=== PATIENT | female | born 1965 | race Caucasian/White ===

== ENCOUNTER 2020-08-31 15:01 | Emergency (ER) | payer BC, SELFPAY ==
--- NOTE | ~2020-08-31 | XR_ITS ---
EXAMINATION: XR foot LT min 3V DATE: 08/31/2020 15:15 INDICATION: Dorsal left foot pain post fall TECHNIQUE: Dorsoplantar, two oblique and lateral views of the left foot were obtained. COMPARISON: None. FINDINGS: Alignment is normal. No fracture. Mild osteoarthritis at the first metatarsophalangeal and a few inte rphalangeal joints. Small Achilles calcaneal spur. Bone island at the cuboid. Soft tissues are unrema rkable. IMPRESSION: 1. No acute osseous abnormality. Reviewed, dictated and finalized at location A.
[2020-08-31 15:07] VITALS: BP 116/47; PULSE 73; RESP 16; TEMP 36.6; O2SAT 100
--- NOTE | 2020-08-31 15:22 | ED.GENADULT ---
HPI - General Adult General Chief complaint: Extremity Injury, Lower Stated complaint: lt foot injury Source: patient Mode of arrival: ambulatory Limitations: no limitations History of Present Illness HPI narrative: Patient presents for evaluation of left foot pain. She indicates she was on a trip to [place], and slip was endorsed last night. She did not hit her head or have loss of consciousness. She does take NSAIDs but denies anticoagulation. She has an underlying history of rheumatoid arthritis and fibromyalgia. She now reports pain in the dorsal aspect of the left foot, rated 8 on a scale of 1-10, without descriptive quality. Weightbearing and walking make the pain worse. She has flexeril and NSAIDs at home. She states she was offered tramadol but that was not strong enough for her. Related Data Home Medications Medication Instructions Recorded Confirmed alprazolam 0.5 mg tablet 0.5 mg PO DAILY 05/20/20 calcium carbonate 600 mg calcium 600 mg PO DAILY 05/20/20 (1,500 mg) tablet cholecalciferol (vitamin D3) 50 50 mcg PO DAILY 05/20/20 mcg (2,000 unit) capsule diclofenac sodium 50 mg 50 mg PO DAILY 05/20/20 tablet,delayed release multivitamin 1 tablet PO DAILY 05/20/20 vilazodone [Viibryd] mg 08/31/20 Allergies Allergy/AdvReac Type Severity Reaction Status Date / Time azithromycin Allergy Unknown Unknown Verified 05/20/20 12:35 hydromorphone Allergy Unknown Unknown Verified 05/20/20 12:35 Penicillins Allergy Unknown Unknown Verified 05/20/20 12:35 Sulfa (Sulfonamide Allergy Unknown Unknown Verified 05/20/20 12:35 Antibiotics) sulfanilamide Allergy Unknown Unknown Verified 05/20/20 12:35 Review of Systems Review of Systems: Narrative: CONSTITUTIONAL: Denies fever, chills, or sweats. EYES: Denies visual changes, redness, or discharge. ENT: Denies rhinorrhea, congestion, sore throat, or otalgia. CARDIOVASCULAR: Denies chest pain, palpitations, or edema. RESPIRATORY: Denies cough or dyspnea. GASTROINTESTINAL: Denies abdominal pain, nausea, vomiting, or diarrhea. GENITOURINARY: Denies dysuria or hematuria. SKIN: Denies rash or itching. MUSCULOSKELETAL: Denies back pain. Reports left foot pain and swelling NEUROLOGIC: Denies headache, numbness, dizziness, or weakness. PSYCHIATRIC: Denies anxiety or depression. PMFSH Past Medical History Medical History (Updated 08/31/20 @ 16:14 by Christopher Dyer, EDIE, BC) Arthritis Arthritis, rheumatic, acute or subacute Depression Fibromyalgia Irritable bowel Vaginal delivery x 2 Surgical History Surgical History History of endometrial ablation History of tonsillectomy S/P cervical spinal fusion Family History Family History Mother Family history of malignant melanoma Sibling Family history of blood dyscrasia Grandparent Family history of malignant neoplasm of breast Diabetes mellitus Family history of malignant neoplasm of breast in first degree relative Other Cerebrovascular accident Depression Family history of coronary artery disease Family history of lupus erythematosus Family history of malignant neoplasm Family history of malignant neoplasm of male breast Malignant neoplasm of prostate Social History Social History Smoking status: Never smoker Second hand tobacco smoke exposure: No Alcohol intake: current Living arrangements: with family Gender identity (if verbalized by the patient): Female Sexual Orientation (if Verbalized by the Patient): Straight or Heterosexual Exam Narrative: Exam Narrative: GENERAL: Well-appearing, well-nourished, and in no acute distress. HEAD: Normocephalic, atraumatic. EYES: PERRLA and EOMI. ENT: Nares clear, no rhinorrhea or epistaxis. Mucous membranes moist. Oropharynx without tonsillar hypertro
[2020-08-31] MEDS: KETOROLAC (*BKC) 60 MG/2 ML VIAL IM (15:30)
== END 2020-08-31 16:26 | disposition home or self-care (01) ==
PROVIDERS: Emergency Provider Nurse Practitioner; PCP Family Medicine
DX: S96.912A Strain of unspecified muscle and tendon at ankle and foot level, left foot, initial encounter (principal); W09.8XXA Fall on or from other playground equipment, initial encounter; M06.9 Rheumatoid arthritis, unspecified; M79.7 Fibromyalgia
CPT/HCPCS: 73630; 96372; 99213; G0463; J1885

== ENCOUNTER 2020-10-15 10:34 | Outpatient (CLI) | payer BC, SELFPAY ==
--- NOTE | ~2020-10-15 | MM_ITS ---
EXAMINATION: MM screening winnie BI w vladimir HISTORY: Screening mammogram TECHNIQUE: Craniocaudal and mediolateral oblique 3-D tomosynthesis images were obtained and synthetic 2-D images were generated. CAD analysis was submitted and interpreted. COMPARISON: 08/28/2019, 07/13/2018, 07/11/2017 bilateral digital screening mammogram examinations BREAST PARENCHYMAL COMPOSITION: There are scattered areas of fibroglandular density. FINDINGS: Stable mild fibroglandular asymmetry. There is no evidence of suspicious mass, calcificatio n, or architectural distortion to suggest malignancy in either breast. There has been no suspicious i nterval change. IMPRESSION: 1. No mammographic evidence of malignancy. 2. Recommend routine screening mammography in one year. BI-RADS Category 2: Benign finding(s). Reviewed, dictated and finalized at location B. [facility] [facility]
== END 2020-10-15 10:35 | disposition home or self-care (01) ==
PROVIDERS: PCP Family Medicine; Visit Provider Obstetrics & Gynecology
DX: Z12.31 Encounter for screening mammogram for malignant neoplasm of breast (principal)
CPT/HCPCS: 77063; 77067

== ENCOUNTER 2021-11-16 15:37 | Outpatient (CLI) | payer BC, SELFPAY ==
--- NOTE | ~2021-11-16 | MM_ITS ---
EXAMINATION: MM screening winnie BI w vladimir HISTORY: Screening mammogram, family history of breast cancer in her mother. TECHNIQUE: Craniocaudal and mediolateral oblique 3-D tomosynthesis images were obtained and synthetic 2-D images were generated. CAD analysis was submitted and interpreted. COMPARISON: 10/15/2020, 08/28/2019, 07/13/2018 BREAST PARENCHYMAL COMPOSITION: There are scattered areas of fibroglandular density. FINDINGS: There is no evidence of suspicious mass, calcification, or architectural distortion to sugg est malignancy in either breast. There has been no suspicious interval change. IMPRESSION: 1. No mammographic evidence of malignancy. 2. Recommend routine screening mammography in one year. BI-RADS Category 1: Negative Reviewed, dictated and finalized at location A. 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
== END 2021-11-16 15:38 | disposition home or self-care (01) ==
LOC: ANHIMG 15:37
PROVIDERS: PCP Family Medicine; Visit Provider Obstetrics & Gynecology
DX: Z12.31 Encounter for screening mammogram for malignant neoplasm of breast (principal)
CPT/HCPCS: 77063; 77067

== ENCOUNTER 2022-02-08 09:41 | Emergency (ER) | payer BC, SELFPAY ==
--- NOTE | ~2022-02-08 | XR_ITS ---
EXAMINATION: XR chest 1V portable DATE: 02/08/2022 10:45 INDICATION: Shortness of breath and painful breathing TECHNIQUE: frontal view of the chest was obtained. COMPARISON: None FINDINGS: The lungs are clear with no focal airspace opacities, pulmonary edema, pleural effusion or pneumothor ax. The cardiomediastinal silhouette is normal. Cervical spinal fusion with anterior plate and screw fixation at C6-C7 and with bilateral vertical yelena and paired bilateral mass screws at C5, C6 and C7, right-sided screw at C4 and centimeters on the cephalad margin of the [id number] with suggestion o f nonvisualized bilateral screws at C3. IMPRESSION: 1. No acute cardiopulmonary disease. Reviewed, dictated and finalized at location A.
--- NOTE | ~2022-02-08 | CT_ITS ---
EXAMINATION: CTA chest PE abdomen pel DATE: 02/08/2022 11:27 INDICATION: Left flank pain. Left upper back pain. TECHNIQUE: Computed tomography angiography (CTA) of the chest was performed with 100 mL Omnipaque-350 intravenous contrast timed to evaluate the pulmonary arteries. Coronal maximum intensity projection 3D-reconstructions were created by the technologist. Computed tomography (CT) of the abdomen and pelv is was performed with intravenous contrast. Automated exposure control and iterative reconstruction t echnique were employed. The dose-length product was 536.76 mGy-cm. COMPARISON: CT abdomen and pelvis 06/28/2011, MRCP 06/29/2011 FINDINGS: CTA chest: The lungs demonstrate mild atelectasis. There is a trace left pleural effusion. The heart size is normal. No pericardial effusion. There is a left paraspinal mass at T5 measuring 3.9 x 2.4 cm , increased from 2.9 x 1.7 cm on 06/29/11. There is no pulmonary embolus. There is severe thoracic spon dylosis. There are changes of anterior fusion procedure in thoracic spine. CT abdomen and pelvis: The liver, gallbladder, spleen, pancreas, adrenal glands, and left kidney are normal. There is a 4 mm cyst in right kidney. There is diverticulosis of the colon without evidence o f diverticulitis. There are no dilated loops of bowel. The appendix is normal. There is mild aortic a therosclerosis. No aneurysm or dissection. There are no pathologically enlarged lymph nodes. There is no free intraperitoneal fluid. There is severe lumbar spondylosis. IMPRESSION: 1. No pulmonary embolus. 2. 3.9 x 2.4 cm left paraspinal mass at T5 with increase in size from 2.9 x 1.7 cm on 06/29/2011, likel y a neurogenic tumor. Reviewed, dictated and finalized at location A. IMPRESSION: 1. No pulmonary embolus. 2. 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
[2022-02-08 09:59] VITALS: BP 143/79; PULSE 101; RESP 16; TEMP 36.8; O2SAT 98
[2022-02-08 10:18] LABS: Basophils Percent Auto 0.6 % (0.2-1.2); Eosinophils Absolute Auto 0.1 K/mm3 (0-0.3); Eosinophils Percent Auto 2.1 % (0-4.4); Hematocrit 39.4 % (37.0-47.0); Immature Granulocyte Absolute 0.01 K/mm3 (0.00-0.031); Immature Granulocyte Percent A 0.2 % (0-0.5); Lymphocytes Absolute Auto 1.78 K/mm3 (0.9-3.2); Lymphocytes Percent Auto 28.6 % (18.3-44.2); Mean Corpuscular Hemoglobin 27.3 pg (26-34); Mean Corpuscular Volume 82.8 fl (80-100); Mean Platelet Volume 8.3 fl (7.4-10.4); Monocytes Absolute Auto 0.6 K/mm3 (0.1-0.6); Neutrophils Absolute Auto 3.7 K/mm3 (1.3-6.7); Neutrophils Percent Auto 58.5 % (45.5-73.1); Platelet Count Result 337 k/mm3 (150-375); Red Blood Count 4.76 M/mm3 (4.2-5.4); Red Cell Distribution Width 13.6 % (11.5-14.5); White Blood Count 6.2 K/mm3 (4.5-10.0)
--- NOTE | 2022-02-08 10:21 | ECG_ITS ---
Measurements Intervals [place] Rate: 92 P: 48 DC: 163 QRS: -3 QRSD: 91 T: 69 QT: 357 QTc: 443 Interpretive Statements SINUS RHYTHM NORMAL ECG NO PREVIOUS ECG AVAILABLE FOR COMPARISON Electronically Signed On 02-08-2022 14:27:36 CDT by Henok Butler M.D.
[2022-02-08 10:22] LABS: Appearance Urine Clear (Clear); Bilirubin Urine Negative (Negative); Blood Urine Negative (Negative); Color Urine Yellow (Yellow); Glucose Urine UA Negative (Negative); Ketones Urine Negative (Negative); Leukocyte Esterase Ur Negative LEU/UL (Negative); Nitrate Urine Negative (Negative); Protein Urine Negative (Negative); Specific Grav Ur 1.025 (1.001-1.035); Urobilinogen Urine 0.2 mg/dL (<2.0); pH Urine 5.5 (5.0-9.0)
--- NOTE | 2022-02-08 10:24 | ED.GENADULT ---
HPI - General Adult General Chief complaint: Abdominal Pain Stated complaint: flank pain Time Seen by Provider: 02/08/22 09:56 Source: patient and RN notes reviewed Mode of arrival: ambulatory Limitations: no limitations History of Present Illness HPI narrative: This is a 56 year old female who presents for evaluation of left upper back pain. She developed pain on night. She reports constant left flank pain that radiates up her upper left back. Her pain is worse with laying on it and movement. She was having dysuria so she was evaluated by her PCP on Tuesday. She was diagnosed with a kidney infection. She also complains of having fever 100.8 F on Tuesday. She has been taking diclofenac for her pain but it is worsening. She denies chest pain, cough, nausea, vomiting or abdominal pain. Her dysuria has resolved. Rates pain 06/06 currently. Related Data Home Medications Medication Instructions Recorded Confirmed alprazolam 0.5 mg tablet 0.5 mg PO DAILY 05/20/20 06/29/21 calcium carbonate 600 mg calcium 600 mg PO DAILY 05/20/20 06/29/21 (1,500 mg) tablet cholecalciferol (vitamin D3) 50 50 mcg PO DAILY 05/20/20 06/29/21 mcg (2,000 unit) capsule diclofenac sodium 50 mg 50 mg PO DAILY 05/20/20 06/29/21 tablet,delayed release multivitamin 1 tablet PO DAILY 05/20/20 06/29/21 vilazodone [Viibryd] mg 08/31/20 06/29/21 dextroamphetamine-amphetamine 10 10 mg PO DAILY 05/21/21 06/29/21 mg tablet hydroxychloroquine 200 mg tablet 200 mg PO DAILY 05/21/21 06/29/21 Allergies Allergy/AdvReac Type Severity Reaction Status Date / Time azithromycin Allergy Unknown Unknown Verified 02/08/22 10:11 hydromorphone Allergy Unknown Unknown Verified 02/08/22 10:11 Penicillins Allergy Unknown Unknown Verified 02/08/22 10:11 Sulfa (Sulfonamide Allergy Unknown Unknown Verified 02/08/22 10:11 Antibiotics) sulfanilamide Allergy Unknown Unknown Verified 02/08/22 10:11 Review of Systems Review of Systems: All systems reviewed & are unremarkable except as noted in HPI and below Constitutional: Constitutional: Reports chills and Reports fever(s) Cardiovascular: Cardiovascular: Denies chest pain and Denies radiating jaw, neck or arm pain Respiratory: Respiratory: Denies cough and Reports dyspnea Gastrointestinal: Gastrointestinal: Denies abdominal pain, Denies nausea and Denies vomiting Genitourinary: Genitourinary: Denies hematuria, Reports dysuria and Reports flank pain PMFSH Past Medical History Medical History Arthritis Arthritis, rheumatic, acute or subacute Depression Fibromyalgia Irritable bowel Vaginal delivery x 2 Surgical History Surgical History H/O wrist surgery History of endometrial ablation History of tonsillectomy S/P cervical spinal fusion Family History Family History Mother Family history of malignant melanoma Sibling Family history of blood dyscrasia Grandparent Family history of malignant neoplasm of breast Diabetes mellitus Family history of malignant neoplasm of breast in first degree relative Other Cerebrovascular accident Depression Family history of coronary artery disease Family history of lupus erythematosus Family history of malignant neoplasm Family history of malignant neoplasm of male breast Malignant neoplasm of prostate Social History Social History Smoking status: Never smoker Second hand tobacco smoke exposure: No Alcohol intake: current Gender identity (if verbalized by the patient): Female Sexual Orientation (if Verbalized by the Patient): Straight or Heterosexual Exam Const: General: no acute distress and alert Orientation/consciousness: patient oriented x3 Eyes: EOM: EOMs intact bilaterally Resp: Eff
[2022-02-08 10:27] LABS: Alanine Aminotransferase 33 U/L (4-35); Albumin Level 4.5 g/dL (3.5-5.1); Alkaline Phosphatase 63 U/L (38-126); Anion Gap 11 mmol/L (8-16); Aspartate Amino Transferase 36 U/L (14-36); Bilirubin,Total 0.3 mg/dL (0.2-1.3); Blood Urea Nitrogen 7 mg/dL (7-17); Calcium 9.1 mg/dL (8.4-10.2); Carbon Dioxide 25 mmol/L (22-30); Chloride 105 mmol/L (98-107); Estimated CRCL calculation 66 ml/min; Estimated Glomerular Filt Rate > 60; Glucose 114 mg/dL (65-110); Lipase 63 U/L (23-300); Sodium 141 mmol/L (137-145)
[2022-02-08] MEDS: MORPHINE SULFATE (*CRX) 4 MG/ML INJ IV PUSH (10:49)
[2022-02-08] MEDS: ONDANSETRON INJ 4 MG/2 ML VIAL IV PUSH (10:49)
[2022-02-08] MEDS: SODIUM CHLORIDE 0.9% IV 1,000 ML 999 ML IV CONT (10:49)
[2022-02-08 10:58] LABS: Lactic Acid Reflex 0.8 mmol/L (0.7-2.1)
[2022-02-08 11:00] LABS: D Dimer 1.01 ug/mL (<0.48)
[2022-02-08 11:02] LABS: Add Urine Microscopic? NO
[2022-02-08 11:57] VITALS: BP 114/65; PULSE 95; RESP 19; O2SAT 100
== END 2022-02-08 13:09 | disposition home or self-care (01) ==
PROVIDERS: Emergency Provider General Practice; PCP Family Medicine
DX: R22.2 Localized swelling, mass and lump, trunk (principal); N15.9 Renal tubulo-interstitial disease, unspecified; M19.90 Unspecified osteoarthritis, unspecified site; M06.9 Rheumatoid arthritis, unspecified; M79.7 Fibromyalgia; K58.9 Irritable bowel syndrome, unspecified; F32.A Depression, unspecified; Z98.1 Arthrodesis status
CPT/HCPCS: 36415; 71045; 71275; 74177; 80053; 81003; 81025; 83605; 83690; 85025; 85380; 93005; 96361; 96374; 96375; 99284; J2270; J2405; J7030; Q9967

== ENCOUNTER 2022-04-06 15:51 | Outpatient (CLI) | payer BC, SELFPAY ==
--- NOTE | ~2022-04-06 | MR_ITS ---
EXAMINATION: MR thoracic spine wo/w con DATE: 04/06/2022 17:52 INDICATION: Nerve sheath tumor. TECHNIQUE: Magnetic resonance imaging (MRI) of the thoracic spine was performed without and with 13 m L MultiHance intravenous contrast. Sequences included sagittal and axial T2-weighted FSE, sagittal ST IR FSE, and sagittal and axial T1-weighted FSE. Postcontrast sequences included sagittal and axial T1 -weighted FS FSE. COMPARISON: CT chest, abdomen, and pelvis 02/08/2022, abdomen MRI 06/29/11 FINDINGS: There is 4 degrees levocurvature of cervicothoracic spine. There are changes of anterior fu beatriz procedure at C6-C7. There are changes of posterior fusion procedure from C3 to C7. In the thorac ic spine, there is mild chronic anterior wedging of T6, T7, T12, and L1 vertebral bodies. There are S chmorl's nodes at multiple levels. There is mildly decreased disc height at T3-T4 and T5-T6, severely decreased disc height at T6-T7, moderately decreased disc height at T7-T8 and T8-T9, and mildly decr eased disc height at T9-T10. The discs are bulging from T1-T2 through T3-T4 with mild central canal s tenosis. From T6-T7 through T8-T9, there are central extrusions with mild central canal stenosis. At T9-T10, there is a right central extrusion with mild central canal stenosis. At T10-T11, there is a r ight central extrusion with mild central canal stenosis. There is multilevel mild to moderate facet j oint osteoarthritis. There is mild neural foraminal stenosis on the right at T1-T2, T2-T3, T7-T8, and T9-T10. On the right, there is moderate neural foraminal stenosis at T8-T9. On the left, there is mi ld neural foraminal stenosis at T1-T2 and T2-T3. The spinal cord signal intensity is normal. At T4 an d T5 on, there is a left paraspinal cyst measuring 3.4 x 1.0 x 3.7 cm without solid enhancing compone nt. IMPRESSION: 1. 3.4 x 1.0 x 3.7 cm left paraspinal cyst at T4 and T5, which measured 3.1 x 1.4 x 3.0 cm on 06/29/11, likely a benign cyst such as a lymphangioma. 2. Severe thoracic spondylosis. Reviewed, dictated and finalized at location E. IMPRESSION: 1. 3.4 x 1.0 x 3.7 cm left paraspinal cyst at T4 and T5, which measured 3.1 x 1 .4 x 3.0 cm on 06/29/11, likely a benign cyst such as a lymphangioma. 2. Severe thoracic spondylosis.
[2022-04-06 16:45] LABS: Estimated Glomerular Filt Rate > 60
== END 2022-04-06 15:52 | disposition home or self-care (01) ==
PROVIDERS: PCP Family Medicine; Visit Provider Neurological Surgery
DX: D49.2 Neoplasm of unspecified behavior of bone, soft tissue, and skin (principal); M47.894 Other spondylosis, thoracic region
CPT/HCPCS: 72157; A9577

== ENCOUNTER 2022-08-12 13:09 | Outpatient (CLI) | payer BC, SELFPAY ==
--- NOTE | ~2022-08-12 | DEXA_ITS ---
Bone Density Report Name: DEBRA HERRERA Age: 57 Sex: Female Ethnicity: White Date of : 1965 Indication: postmenopausal; screening for osteoporosis; height loss; rheumatoid arthritis; Referring Provider: DAVID CASTILLO Study: Bone densitometry was performed. Exam Date: August 12, 2022 Accession number: [id number] Bone Density: Region BMD T-score Z-score Classification AP Spine(L1-L4) 1.085 0.3 1.6 Normal Femoral Neck (Left) 0.598 -2.3 -1.1 Osteopenia Total Hip (Left) 0.637 -2.5 -1.7 Osteoporosis Femoral Neck (Right) 0.562 -2.6 -1.4 Osteoporosis Total Hip (Right) 0.665 -2.3 -1.4 Osteopenia Total Hip Mean 0.651 -2.4 -1.6 Osteopenia World Health Organization criteria for BMD impression classify patients as: Normal (T-score at or above -1.0), Osteopenia (T-score between -1.0 and -2.5), or Osteoporosis (T-score at or below -2.5). 10-year Fracture Risk: FRAX not reported because: Some T-score for Spine Total or Hip Total or Femoral Neck at or below -2.5 Clinical Information Provided by Patient: Has rheumatoid arthritis Has used the following medications: Vitamin D, Calcium Patient maximum height was 67.5 Menopause Age: 49 Drinks caffeinated beverages Onset of menses at age 11 Number of children 2 Impression: The patient has osteoporosis, based on the Right Femoral Neck T-score. Discussion: INCREASED RISK OF FRACTURE. BONE DENSITY IS UNDESIRABLY LOW AT ONE OR MORE SKELETAL SITES, CONSISTENT WITH POSTMENOPAUSAL OSTEOPOROSIS. This patient's lowest T-score meets the World Health Organization's (WHO) criteria for osteoporosis at one or more sites (T-score -2.5 or below). In untreated patients, the risk of osteoporotic fracture increases approximately two-fold for each 1.0 SD decrease in T-score. Low bone density is not the only risk factor for fracture; also consider factors such as patient's age, frailty or poor health, risk of falling, risk of injury, previous osteoporotic fracture, family history of osteoporosis, cigarette smoking, low body weight, etc. Not everyone with low bone mineral density has osteoporosis; osteomalacia and other metabolic bone disorders should also be considered. Patients who have osteoporosis should be evaluated for specific diseases and conditions (secondary causes) that may cause or contribute to bone loss. The [place] [employer] Endocrinologists (AACE) and National Osteoporosis Foundation (NOF) recommend pharmacologic intervention for all postmenopausal women whose T-score is in this range. The patient should follow a healthful lifestyle (good nutrition with adequate calcium and vitamin D, and appropriate weight-bearing exercise). Follow-Up: Consider a repeat BMD and Vertebral Fracture Assessment (VFA) exam in 2 years or sooner if medically ne
== END 2022-08-12 13:10 | disposition home or self-care (01) ==
PROVIDERS: PCP Family Medicine; Visit Provider Obstetrics & Gynecology
DX: Z78.0 Asymptomatic menopausal state (principal); M85.852 Other specified disorders of bone density and structure, left thigh; M85.851 Other specified disorders of bone density and structure, right thigh
CPT/HCPCS: 77080

== ENCOUNTER 2022-10-05 13:54 | Outpatient (CLI) | payer BC, SELFPAY ==
[2022-10-05 19:16] LABS: Vitamin D 25 Hydroxy 94.9 ng/mL
== END 2022-10-05 13:55 | disposition home or self-care (01) ==
PROVIDERS: PCP Family Medicine; Visit Provider Obstetrics & Gynecology
DX: M81.0 Age-related osteoporosis without current pathological fracture (principal)
CPT/HCPCS: 36415; 82306

== ENCOUNTER 2022-10-12 16:41 | Outpatient (CLI) | payer BC, SELFPAY ==
--- NOTE | ~2022-10-12 | MR_ITS ---
EXAMINATION: MR thoracic spine wo/w con DATE: 10/12/2022 17:36 INDICATION: Nerve sheath tumor. TECHNIQUE: Magnetic resonance imaging (MRI) of the thoracic spine was performed without and with 13 m L MultiHance intravenous contrast. COMPARISON: Thoracic spine MRI 04/06/2022, CT 02/08/2022 FINDINGS: There is mild kyphosis of cervical spine. There are changes of anterior fusion procedure at C6-C7 with anterior plate and screws. There are changes of posterior fusion procedure from C3 to C7 with lateral mass screws. At T5 on the left, there is a 2.8 x 0.6 cm paraspinal mass that demonstrate s increased T1-weighted signal intensity and increased T2-weighted signal intensity, decreased from 3 .4 x 1.2 cm on 04/06/2022. There is mild chronic anterior wedging of T6 vertebral body. There is mildl y decreased disc height at multiple levels. There is severely decreased disc height at T6-T7, moderat antonia decreased disc height at T7-T8, and severely decreased disc height at T8-T9. At T1-T2, the disc i s bulging with mild central canal stenosis. At T2-T3, the disc is bulging with mild central canal kianna nosis. At T3-T4, the disc is bulging with mild central canal stenosis. At T5-T6, there is a left cent ral extrusion with mild central canal stenosis. At T6-T7, there is a central extrusion with mild cent ral canal stenosis and ventral indentation of the spinal cord. At T7-T8, the disc is bulging with mil d central canal stenosis. At T8-T9, there is a central extrusion with mild central canal stenosis. At T9-T10, there is a right central protrusion with mild central canal stenosis. There is multilevel mi ld to moderate facet joint osteoarthrosis. There is mild neural foraminal stenosis at multiple levels bilaterally. The spinal cord signal intensity is normal. The conus medullaris is at L1. IMPRESSION: 1. Left paraspinal cystic mass at T5 measuring 2.8 x 0.6 cm, decreased from 3.4 x 1.2 cm on 04/06/2022 . The differential diagnosis includes lymphangioma and peripheral nerve sheath tumor. 2. Severe thoracic spondylosis. Reviewed, dictated and finalized at location A. 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 Left paraspinal cystic mass at T5 measuring 2.8 x 0.6 cm, decreased from 3.4 x 1.2 cm on 04/06/2022. The differential diagnosis includes lymphangioma and pe ripheral nerve sheath tumor. 2. Severe thoracic spondylosis.
== END 2022-10-12 16:42 | disposition home or self-care (01) ==
LOC: ANHIMG 16:44
PROVIDERS: PCP Family Medicine; Visit Provider Neurological Surgery
DX: M47.894 Other spondylosis, thoracic region (principal); M48.8X4 Other specified spondylopathies, thoracic region
CPT/HCPCS: 72157; A9577

== ENCOUNTER → 2022-12-01 11:03 | Outpatient (CLI) | payer BC, SELFPAY ==
--- NOTE | ~2022-12-01 | MM_ITS ---
EXAMINATION: MM screening winnie BI w vladimir HISTORY: Screening mammogram, family history of breast cancer in her mother. TECHNIQUE: Craniocaudal and mediolateral oblique 3-D tomosynthesis images were obtained and synthetic 2-D images were generated. CAD analysis was submitted and interpreted. COMPARISON: 11/16/2021, 10/15/2020, 08/28/2019 BREAST PARENCHYMAL COMPOSITION: There are scattered areas of fibroglandular density. FINDINGS: No suspicious mass, calcification, or architectural distortion are identified in either feliberto ast to suggest malignancy. There has been no suspicious interval change. IMPRESSION: 1. No mammographic evidence of malignancy. 2. Recommend routine screening mammography in one year. BI-RADS Category 1: Negative Reviewed, dictated and finalized at location A. 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
== END ==
PROVIDERS: PCP Family Medicine; Visit Provider Obstetrics & Gynecology
DX: Z12.31 Encounter for screening mammogram for malignant neoplasm of breast (principal)
CPT/HCPCS: 77063; 77067

== ENCOUNTER → 2023-04-21 13:55 | Outpatient (CLI) | payer BC, SELFPAY ==
--- NOTE | ~2023-04-21 | MR_ITS ---
EXAMINATION: MR cervical spine wo con DATE: 04/21/2023 15:05 INDICATION: Spondylolysis, cervical region. TECHNIQUE: Magnetic resonance imaging (MRI) of the cervical spine was performed without intravenous c ontrast. Sequences included sagittal T2-weighted FSE, sagittal T2-weighted FS FSE, sagittal T1-weight ed FSE, axial MERGE, and axial T2-weighted FSE. COMPARISON: None FINDINGS: There is hypolordosis of cervical spine. Vertebral body heights are normal. There is 2 mm a nterolisthesis of C7 on T1. There is mildly decreased disc height at C4-C5 and moderately decreased d isc height at C5-C6. There are changes of anterior fusion procedure at C6-C7 with anterior plate and screws. There are changes of posterior fusion procedure from C3 to C7 with instrumentation. There are laminectomies from C3 to C6. The spinal cord signal intensity is normal. The following disc levels a re specifically discussed: C2-C3: There is a central extrusion. There is mild bilateral uncovertebral joint osteoarthritis. Ther e is moderate bilateral facet joint osteoarthritis. There is mild left neural foraminal stenosis. The re is mild central canal stenosis with posterior decompression. C3-C4: There is a central extrusion. There is mild bilateral uncovertebral joint osteoarthritis. Ther e is moderate bilateral facet joint hypertrophy. There is mild left neural foraminal stenosis. There is mild central canal stenosis with posterior decompression. C4-C5: There is a central protrusion. There is mild right and moderate left uncovertebral joint osteo arthritis. There is no facet joint hypertrophy. There is mild bilateral neural foraminal stenosis. Th ere is no central canal stenosis C5-C6: The disc does not extend beyond the endplate margin. There is moderate bilateral uncovertebral joint osteoarthritis. There is mild bilateral facet joint hypertrophy. There is mild bilateral neura l foraminal stenosis. There is no central canal stenosis. C6-C7: There is moderate bilateral uncovertebral joint hypertrophy. There is mild bilateral facet kathleen nt hypertrophy. There is mild right and moderate left neural foraminal stenosis. There is mild centra l canal stenosis with posterior decompression. C7-T1: There is a central extrusion. There is mild bilateral uncovertebral joint osteoarthritis. Ther e is severe bilateral facet joint osteoarthritis. There is mild bilateral neural foraminal stenosis. There is no central canal stenosis. IMPRESSION: 1. Moderate cervical spondylosis. 2. Anterior fusion procedure at C6-C7. Posterior fusion procedure from C3 to C7. Reviewed, dictated and finalized at location E. IMPRESSION: 1. Moderate cervical spondylosis. 2. Anterior fusion procedure at C6-C7. Posterior fusion procedure from C3 to C7 .
== END ==
PROVIDERS: PCP Neurological Surgery; Visit Provider Neurological Surgery
DX: M43.02 Spondylolysis, cervical region (principal); Z98.1 Arthrodesis status
CPT/HCPCS: 72141

== ENCOUNTER 2023-08-16 12:43 | Outpatient (CLI) | payer BC, SELFPAY ==
--- NOTE | 2023-08-16 15:00 | NEURO_ITS ---
Impression: # Complains of right upper extremity pain. History of cervical surgery. # Normal and symmetrical Nerve Conduction Study. # Needle/EMG exam with chronic neurogenic changes particularly in left extremity but no fibs. # Clinical correlation recommended. Nerve Conduction Studies Anti Sensory Summary Table Stim Site NR Peak (ms) P-T Amp (?V) Site1 Site2 Delta-P (ms) Dist (cm) Bertram (m/s) Left Median Anti Sensory (2-3nd Digit) Wrist 3.0 82.4 Wrist 2-3nd Digit 3.0 14.0 47 Wrist 2.9 60.6 Wrist 2-3nd Digit 3.0 14.0 47 Right Median Anti Sensory (2-3nd Digit) Wrist 2.7 65.0 Wrist 2-3nd Digit 2.7 14.0 52 Wrist 2.8 79.7 Wrist 2-3nd Digit 2.7 14.0 52 Left Radial Anti Sensory (Base 1st Digit) Wrist 2.7 33.8 Wrist Base 1st Digit 2.7 0.0 Right Radial Anti Sensory (Base 1st Digit) Wrist 2.3 13.8 Wrist Base 1st Digit 2.3 0.0 Left Ulnar Anti Sensory (5th Digit) Wrist 2.3 63.5 Wrist 5th Digit 2.3 14.0 61 Right Ulnar Anti Sensory (5th Digit) Wrist 2.3 71.6 Wrist 5th Digit 2.3 14.0 61 Motor Summary Table Stim Site NR Onset (ms) O-P Amp (mV) Site1 Site2 Delta-0 (ms) Dist (cm) Bertram (m/s) Left Median Motor (Abd Poll Brev) Wrist 3.7 3.9 Elbow Wrist 4.6 27.0 59 Elbow 8.3 3.0 Right Median Motor (Abd Poll Brev) Wrist 3.2 2.6 Elbow Wrist 4.9 27.0 55 Elbow 8.1 1.4 Left Ulnar Motor (Abd Dig Minimi) Wrist 2.7 5.4 A Elbow Wrist 4.6 28.0 61 A Elbow 7.3 4.5 Right Ulnar Motor (Abd Dig Minimi) Wrist 2.9 5.8 A Elbow Wrist 4.6 28.0 61 A Elbow 7.5 5.6 F Wave Studies NR F-Lat (ms) L-R F-Lat (ms) Left Median (Mrkrs) (Abd Poll Brev) 26.64 0.81 Right Median (Mrkrs) (Abd Poll Brev) 27.45 0.81 Left Ulnar (Mrkrs) (Abd Dig Min) 27.27 0.47 Right Ulnar (Mrkrs) (Abd Dig Min) 27.74 0.47 EMG Side Muscle Nerve Root Ins Act Fibs Amp Dur Recrt Comment Right 1stDorInt Ulnar C8-T1 Nml Nml Nml Nml Nml Right Ext Indicis Radial (Post Int) C7-8 Nml Nml Nml Nml Nml Right Ext Digitorum Radial (Post Int) C7-8 Nml Nml Nml Nml Nml Right BrachioRad Radial C5-6 Nml Nml Nml Nml Nml Right PronatorTeres Median C6-7 Nml Nml Nml Nml Nml Right Abd Poll Brev Median C8-T1 Nml Nml Nml Nml Nml Left 1stDorInt Ulnar C8-T1 Nml Nml Nml Nml Nml Left Ext Indicis Radial (Post Int) C7-8 Nml Nml Nml Nml Nml Left Ext Digitorum Radial (Post Int) C7-8 Nml Nml Nml Nml Nml Left BrachioRad Radial C5-6 Nml Nml Nml Nml Nml Left PronatorTeres Median C6-7 Nml Nml Nml Nml Nml Left Abd Poll Brev Median C8-T1 Nml Nml Nml Nml Nml Right Biceps Musculocut C5-6 Nml Nml Nml Nml Nml Right Triceps Radial C6-7-8 Nml Nml Nml Nml Nml Right Deltoid Axillary C5-6 Nml Nml Nml Nml Nml Left Biceps Musculocut C5-6 Nml Nml Nml Nml Nml Left Triceps Radial C6-7-8 Nml Nml Nml Nml Nml Left Deltoid Axillary C5-6 Nml Nml Nml Nml Nml MTDD
== END 2023-08-16 12:44 | disposition home or self-care (01) ==
LOC: ANHNEURO 12:45
PROVIDERS: PCP Family Medicine; Visit Provider Neurological Surgery
DX: M79.629 Pain in unspecified upper arm (principal)
CPT/HCPCS: 95886; 95911

== ENCOUNTER 2023-10-17 13:28 | Outpatient (CLI) | payer BC, SELFPAY ==
--- NOTE | ~2023-10-17 | MR_ITS ---
EXAMINATION: MR thoracic spine wo/w con DATE: 10/17/2023 14:29 INDICATION: Congenital malformation respiratory system. Left-sided back pain. TECHNIQUE: Magnetic resonance imaging (MRI) of the thoracic spine was performed without and with 12 m L MultiHance intravenous contrast. COMPARISON: Thoracic spine MRI 10/12/2022 FINDINGS: There is mild kyphosis of cervical spine. There are changes of anterior fusion procedure at C6-C7. There are changes of posterior fusion procedure in cervical spine. There is mild chronic ante rior wedging of T6, T7, T8, and T12 vertebral bodies. There are Schmorl's nodes at multiple levels. T here is mildly decreased disc height at T3-T4, severely decreased disc height at T6-T7, T7-T8, and T8 -T9, and mildly decreased disc height at T9-T10. At T1-T2, there is a central extrusion with mild magan tral canal stenosis. At T2-T3, there is disc is bulging with mild central canal stenosis. At T3-T4, t here is a central extrusion with mild central canal stenosis. At T5-T6, there is a left central extru beatriz with mild central canal stenosis. At T6-T7 through T9-T10, the discs are bulging with mild centr al canal stenosis. At T10-T11, there is a right central protrusion with mild central canal stenosis. There is multilevel facet joint osteoarthritis. There is mild neural foraminal stenosis at many level s bilaterally. On the right, there is moderate neural foraminal stenosis at T8-T9. The spinal cord si gnal intensity is normal. At T4-T5 on the left, there is a 2.6 x 2.4 x 0.4 cm paraspinal cyst, decrea sed from 2.9 x 2.5 x 0.6 cm. IMPRESSION: 1. Severe thoracic spondylosis, stable from 10/12/2022. 2. Left paraspinal cystic at T4-T5 with mild decrease in size from 10/12/2022, most likely a lymphang ioma or synovial cyst. Reviewed, dictated and finalized at location E. 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 Severe thoracic spondylosis, stable from 10/12/2022. 2. 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
== END 2023-10-17 13:29 | disposition home or self-care (01) ==
PROVIDERS: PCP Family Medicine; Visit Provider Neurological Surgery
DX: Q34.9 Congenital malformation of respiratory system, unspecified (principal); M47.894 Other spondylosis, thoracic region
CPT/HCPCS: 72157; A9577

== ENCOUNTER 2024-01-03 08:44 | Outpatient (CLI) | payer BC, SELFPAY ==
--- NOTE | ~2024-01-03 | DEXA_ITS ---
Bone Density Report Name: DEBRA HERRERA Age: 58 Sex: Female Ethnicity: White Date of : 1965 Indication: postmenopausal osteoporosis; height loss; Referring Provider: YELENA AKERS Study: Bone densitometry was performed. Exam Date: January 03, 2024 Accession number: [id number] Bone Density: Region BMD T-score Z-score Classification AP Spine(L1, L2, L3) 0.978 -0.4 1.0 Normal Femoral Neck (Left) 0.566 -2.5 -1.3 Osteoporosis Total Hip (Left) 0.608 -2.7 -1.8 Osteoporosis Femoral Neck (Right) 0.520 -3.0 -1.7 Osteoporosis Total Hip (Right) 0.624 -2.6 -1.7 Osteoporosis Total Hip Mean 0.616 -2.7 -1.8 Osteoporosis World Health Organization criteria for BMD impression classify patients as: Normal (T-score at or above -1.0), Osteopenia (T-score between -1.0 and -2.5), or Osteoporosis (T-score at or below -2.5). 10-year Fracture Risk: FRAX not reported because: Some T-score for Spine Total or Hip Total or Femoral Neck at or below -2.5 Previous Exams: Region Exam Age BMD T-score BMD Change BMD Change Date g/cm2 vs Baseline vs Previous AP Spine (L1-L3) 01/03/2024 58 0.978 -0.4 -0.047 (-4.6%) -0.033 (-3.2%) 08/12/2022 57 1.011 -0.1 -0.014 (-1.4%) -0.023 (-2.2%) 07/13/2018 52 1.034 0.1 0.009 (0.9%) 0.009 (0.9%) 02/27/2015 49 1.025 0.1 Total Hip(Left) 01/03/2024 58 0.608 -2.7 -0.102 (-14.3% -0.029 (-4.6%) 08/12/2022 57 0.637 -2.5 -0.072 (-10.2% -0.138 (-17.9% 07/13/2018 52 0.776 -1.4 0.066 (9.3%)* 0.066 (9.3%)* 02/27/2015 49 0.709 -1.9 Total Hip(Right) 01/03/2024 58 0.624 -2.6 -0.068 (-9.8%) -0.042 (-6.3%) 08/12/2022 57 0.665 -2.3 -0.026 (-3.8%) -0.122 (-15.5% 07/13/2018 52 0.788 -1.3 0.096 (13.9%)* 0.096 (13.9%)* 02/27/2015 49 0.691 -2.1 *Denotes significance at 95% confidence level, LSC for AP Spine = 0.022 g/cm2, LSC for Total Hip = 0.027 g/cm2 Clinical Information Provided by Patient: Has used the following medications: Vitamin D, Calcium Patient maximum height was 67.5 Menopause Age: 49 Drinks caffeinated beverages Onset of menses at age 12 Number of children 2 Impression: The patient has osteoporosis, based on the Right Femoral Neck T-score. The BMD for the AP Spine (L1-L3) decreased, changing by -3.2% since the last DXA exam. The BMD for the Total Hip(Left) decreased, changing by -4.6% since the last DXA exam. The BMD for the Total Hip(Right) decreased, jaren
== END 2024-01-03 08:45 | disposition home or self-care (01) ==
PROVIDERS: PCP Family Medicine; Visit Provider Registered Nurse
DX: M81.0 Age-related osteoporosis without current pathological fracture (principal)
CPT/HCPCS: 77080

== ENCOUNTER 2024-03-28 09:06 | Outpatient (CLI) | payer BC, SELFPAY ==
--- NOTE | ~2024-03-28 | MM_ITS ---
EXAMINATION: MM screening winnie BI w vladimir HISTORY: Screening TECHNIQUE: Craniocaudal and mediolateral oblique 3-D tomosynthesis images were obtained and synthetic 2-D images were generated. CAD analysis was submitted and interpreted. COMPARISON: Comparison to multiple prior studies sequentially, with oldest reviewed study dated 07/11. BREAST PARENCHYMAL COMPOSITION: Not dense: There are scattered areas of fibroglandular density. FINDINGS: There is no evidence of suspicious mass, calcification, or architectural distortion to sugg est malignancy in either breast. There has been no suspicious interval change. IMPRESSION: 1. No mammographic evidence of malignancy. 2. Recommend routine screening mammography in one year. BI-RADS Category 1: Negative Reviewed, dictated and finalized at location B.
== END 2024-03-28 09:07 | disposition home or self-care (01) ==
LOC: ANHIMG 09:09
PROVIDERS: Visit Provider Obstetrics & Gynecology
DX: Z12.31 Encounter for screening mammogram for malignant neoplasm of breast (principal)
CPT/HCPCS: 77063; 77067

== ENCOUNTER 2024-07-10 11:31 | Outpatient (CLI) | payer BC, SELFPAY ==
[2024-07-10 12:07] LABS: Anion Gap 8 mmol/L (4-12); Blood Urea Nitrogen 11 mg/dL (7-17); Calcium 9.2 mg/dL (8.4-10.2); Carbon Dioxide 30 mmol/L (22-30); Chloride 101 mmol/L (98-107); Estimated Glomerular Filt Rate > 60; Glucose 104 mg/dL (65-110); Sodium 139 mmol/L (137-145)
[2024-07-10 12:29] LABS: Vitamin D 25 Hydroxy 79.2 ng/mL
== END 2024-07-10 11:32 | disposition home or self-care (01) ==
LOC: ANHLAB 11:34
PROVIDERS: PCP Physician Assistant; Visit Provider Obstetrics & Gynecology
DX: M81.0 Age-related osteoporosis without current pathological fracture (principal)
CPT/HCPCS: 36415; 80048; 82306

== ENCOUNTER 2024-08-01 13:23 | Outpatient (CLI) | payer BC, SELFPAY ==
--- NOTE | 2024-08-01 13:53 | ECG_ITS ---
Test Date: 2024-08-01 14:02:17 Measurements Intervals Edna Rate: 83 P: 62 VT: 158 QRS: -4 QRSD: 86 T: 65 QT: 358 QTc: 422 Interpretive Statements SINUS RHYTHM POSSIBLE LEFT ATRIAL ENLARGEMENT INCOMPLETE RIGHT BUNDLE BRANCH BLOCK BASELINE ARTIFACT- I, II, AVR BORDERLINE ECG No previous ECG available for comparison Electronically Signed On 08-01-2024 14:04:45 CDT by Dav Gomez D.O.
[2024-08-01 14:29] LABS: Hematocrit 43.4 % (37.0-47.0); Hemoglobin 14.4 g/dL (12.0-15.0)
[2024-08-01 14:39] LABS: Albumin Level 4.4 g/dL (3.5-5.1); Estimated Glomerular Filt Rate > 60; Glucose 124 mg/dL (65-110)
== END 2024-08-01 13:24 | disposition home or self-care (01) ==
LOC: ANHLAB 13:25
PROVIDERS: PCP Physician Assistant; Visit Provider Orthopaedic Surgery
DX: M17.0 Bilateral primary osteoarthritis of knee (principal); I45.10 Unspecified right bundle-branch block
CPT/HCPCS: 36415; 82040; 82565; 82947; 85014; 85018; 93005

== ENCOUNTER 2024-09-19 14:01 | Outpatient (CLI) | payer BC, SELFPAY ==
[2024-09-19 15:33] LABS: Basophils Absolute Auto 0.1 K/mm3 (0.0-0.1); Eosinophils Absolute Auto 0.2 K/mm3 (0-0.3); Eosinophils Percent Auto 3.2 % (0-4.4); Hematocrit 41.4 % (37.0-47.0); Hemoglobin 14.1 g/dL (12.0-15.0); Immature Granulocyte Absolute 0.02 K/mm3 (0.00-0.031); Immature Granulocyte Percent A 0.3 % (0-0.5); Lymphocytes Absolute Auto 2.22 K/mm3 (0.9-3.2); Lymphocytes Percent Auto 35.3 % (18.3-44.2); Mean Corpuscular HGB Conc 34.1 g/dl (32-36); Mean Corpuscular Hemoglobin 29.1 pg (26-34); Mean Corpuscular Volume 85.4 fl (80-100); Mean Platelet Volume 8.3 fl (7.4-10.4); Monocytes Absolute Auto 0.5 K/mm3 (0.1-0.6); Monocytes Percent Auto 8.6 % (2.6-8.5); Neutrophils Absolute Auto 3.3 K/mm3 (1.3-6.7); Neutrophils Percent Auto 51.6 % (45.5-73.1); Platelet Count Result 285 k/mm3 (150-375); Red Blood Count 4.85 M/mm3 (4.2-5.4); Red Cell Distribution Width 13.2 % (11.5-14.5); White Blood Count 6.3 K/mm3 (4.5-10.0)
[2024-09-19 16:00] LABS: Urine Cotinine NEGATIVE
[2024-09-19 16:37] LABS: Hemoglobin A1C 5.8 % (<5.7)
[2024-09-19 16:46] LABS: MRSA (PCR) NOT DETECTED (NOT DETECTE)
== END 2024-09-19 14:02 | disposition home or self-care (01) ==
PROVIDERS: PCP Physician Assistant; Visit Provider Orthopaedic Surgery
DX: Z01.812 Encounter for preprocedural laboratory examination (principal); M17.11 Unilateral primary osteoarthritis, right knee
CPT/HCPCS: 80307; 83036; 85025; 87641

== ENCOUNTER 2024-10-03 09:07 | Outpatient (CLI) | payer BC, SELFPAY ==
[2024-10-03 10:05] LABS: Albumin Level 4.2 g/dL (3.5-5.1); Estimated Glomerular Filt Rate > 60; Glucose 102 mg/dL (65-110)
== END 2024-10-03 09:08 | disposition home or self-care (01) ==
PROVIDERS: PCP Physician Assistant; Visit Provider Orthopaedic Surgery
DX: M17.11 Unilateral primary osteoarthritis, right knee (principal); Z01.818 Encounter for other preprocedural examination
CPT/HCPCS: 36415; 82040; 82565; 82947

== ENCOUNTER 2024-10-15 00:37 | Day surgery (SDC) | payer BC, SELFPAY ==
[2024-09-19 14:25] VITALS: BP 114/77; PULSE 82; RESP 16; TEMP 36.1; O2SAT 99; BMI 22.4
--- NOTE | 2024-09-19 14:44 | PC.NURSE ---
Report to the Outpatient Waiting Room, entrance under the green pavilion located off [facility], at time ___10:00AM____ on date ___10/15/24____. Planned Procedure Time: ____12:00PM____.? Time changes happen often and if your time is changed the preop area will call you the afternoon before. - You and your visitor will be asked to self-screen and do not enter if you have any COVID symptoms. Please call surgeon if you need to reschedule. - A mask is optional within the hospital at this time. Patients may have clear liquids (water, carbonated beverages, clear teas, apple juice) until 3 hours prior to surgery with a maximum of 20 ounces. - No food from midnight until time of surgery and no smoking. Take only the following medications with a SIP of water on the morning of surgery: VIIBRYD. MAY TAKE ALPRAZOLAM NEEDED FOR ANXIETY DO NOT STOP ANY OF YOUR OTHER PRESCRIPTION MEDICATIONS PRIOR TO SURGERY EXCEPT THE FOLLOWING Medications to discontinue per physician ____HOLD ALL NSAIDS AND VITAMINS/SUPPLEMENTS 7 DAYS PRE-OP PER DR JOEL___ Date to take last dose 10/07/24 Please no make-up, nail eritrean, hairspray, perfume, deodorant, or body powder the day of surgery.? No jewelry (including any body piercings) or valuables the day of surgery, leave them at home.? Please take a shower or bath the night before, or the morning of, surgery with an antibacterial soap.? Wear comfortable, loose fitting clothing.? - Jewelry must be removed prior to entering the operating room.? Rings and piercings that are not removed may be cut off. - The hospital will not accept responsibility for valuables.? - Please leave all valuables, including medications, at home the day of surgery. If you are going home after surgery, a licensed cdl team truck driver must drive you home.? - NO public transportation without another adult if you receive anesthesia. - We recommend that an adult stay with you for 24 hours following discharge. - We also recommend that you do not drive, make important decision, drink alcoholic beverages, or take any drugs that were not prescribed by your health care provider for at least 24 hours after your discharge time. Follow any additional instructions given to you from your surgeon. Telephone instructions given to ____PATIENT and asked if any additional questions and then verbalized understanding. Patient advised to call surgeon office or pre surgery nurse liaison [phone] if any additional questions.
[2024-10-15] VITALS (13 sets, daily range): BP systolic 122–149; BP diastolic 64–84; PULSE 80–100; RESP 12–18; TEMP 36–36.8; O2SAT 93–100
--- NOTE | ~2024-10-15 | XR_ITS ---
EXAMINATION: [id number] DATE: 10/15/2024 15:47 INDICATION: Total right knee arthroplasty. Postop. TECHNIQUE: 2 views of right knee were obtained. COMPARISON: None. FINDINGS: There is a total right knee arthroplasty with patellar resurfacing in near-anatomic alignme nt. No fracture. There is gas in the knee joint and soft tissues, consistent with recent surgery. IMPRESSION: 1. Total right knee arthroplasty in near-anatomic alignment. Reviewed, dictated and finalized at location A. D CARE WORKER
--- NOTE | 2024-10-15 09:56 | WPDHPUPDATE1 ---
History and Physical Update Update Date/Time: 10/15/24 09:56 History and Physical has been reviewed, including an updated exam of the patient. There are NO changes in the patient's condition. Risks, benefits, and alternatives have been discussed and questions answered. Patient agrees to proceed with procedure.
[2024-10-15] MEDS: ACETAMINOPHEN 500 MG TABLET 1000 MG PO (11:03)
[2024-10-15] MEDS: LACTATED RINGERS 1,000 ML 30 ML IV CONT ×2 (11:15→15:00)
[2024-10-15] MEDS: TRANEXAMIC ACID 1,000MG/ISO100 1,000 MG/100 ML BAG 200 MG IVPB (11:31)
--- NOTE | 2024-10-15 12:23 | WPDANESEPPF ---
Anes - Initial Pre Proc Eval Procedure: Operation Date: 10/15/24 12:00 Proposed Procedures p Right Total Knee Arthroplasty - Deonte Pritchard MD Date/Time: 10/15/24 12:23 Surgeon: Deonte Pritchard MD Pre Op Diagnosis: primary OR right knee Pre Op Diagnosis: primary OA right knee Patient Data Age: 59 Gender: F Height: 1.7 m Weight: 64.1 kg Last Vital Signs Temp 36.7 C 10/15/24 10:55 Pulse 80 10/15/24 10:55 Resp 16 10/15/24 10:55 BP 128/64 10/15/24 10:55 Pulse Ox 100 10/15/24 10:55 O2 Del Method Room Air 10/15/24 10:55 Allergies Allergy/AdvReac Type Severity Reaction Status Date / Time Penicillins Allergy Unknown Rash Verified 10/15/24 10:40 azithromycin AdvReac Unknown NAUSEA, Verified 10/15/24 10:40 ABD PAIN hydromorphone AdvReac Unknown REDNESS AT Verified 10/15/24 10:40 IV INSERTION SITE Home Medications Medication Instructions Recorded Confirmed Type multivitamin (Daily Multi-Vitamin 1 tablet PO DAILY 05/20/20 09/19/24 History tablet) vilazodone 10 mg tablet (Viibryd) 10 mg PO QAM 08/31/20 10/15/24 History carisoprodol 250 mg tablet (Soma) 250 mg PO QHS PRN Muscle Spasm 06/21/23 09/19/24 History calcium carbonate (Calcium 600) 600 mg PO DAILY 05/09/24 09/19/24 History estradiol 0.01% (0.1 mg/gram) 1 g vaginal 2XW #42.5 grams 07/12/24 09/19/24 Rx vaginal cream (Estrace) L.acidophil-B.animalis, bifidum, 1 cap PO DAILY 09/19/24 09/19/24 History infantis, long 3 billion cell capsule acetaminophen 500 mg capsule 1,000 mg PO Q6H PRN Pain 09/19/24 09/19/24 History alprazolam 0.5 mg tablet 0.5 mg PO BID PRN Anxiety 09/19/24 09/19/24 History dextroamphetamine-amphetamine 20 1 tablet PO BID 10/23/24 10/23/24 History mg tablet ibuprofen 200 mg capsule 400 mg PO Q6H PRN Pain 09/19/24 09/19/24 History aspirin 81 mg tablet,delayed 81 mg PO BID 14 days #28 tabs 10/15/24 Rx release meloxicam 15 mg tablet 15 mg PO DAILY #30 tabs 10/15/24 Rx oxycodone-acetaminophen 5 mg-325 1 - 2 tablet PO Q4-6H PRN pain 7 10/15/24 Rx mg tablet days #30 tabs prednisone 5 mg tablet 5 mg PO DAILY 3 weeks #21 tabs 10/15/24 Rx Laboratory Tests 10/15/24 10:59 Blood Type Pending Antibody Screen Pending ECG: SR 83 : patient denies (post menopausal, s/p ablation) Patient hx anesthesia problems: none Family hx anesthesia problems: none Results Review: All pre-operative results and documents have been reviewed as part of the pre-operative evaluation. [facility] Past Medical History Medical History Arthritis Arthritis, rheumatic, acute or subacute Depression Fibromyalgia Irritable bowel Upper extremity pain Vaginal delivery x 2 Surgical History Surgical History H/O wrist surgery History of endometrial ablation History of tonsillectomy S/P cervical spinal fusion Family History Family History Mother Family history of malignant melanoma Sibling Family history of blood dyscrasia Grandparent Family history of malignant neoplasm of breast Diabetes mellitus Family history of malignant neoplasm of breast in first degree relative Other Cerebrovascular accident Depression Family history of coronary artery disease Family history of lupus erythematosus Family history of malignant neoplasm Family history of malignant neoplasm of male breast Malignant neoplasm of prostate Social History Social History Smoking status: Never smoker Second hand tobacco smoke exposure: Yes Alcohol intake: current Lack of Transportation: No Lack of Food: Never True Current Housing: I Have Housing Concerned About Future Housing: No Difficulty Paying Gas/Electric Bills: No Difficulty Paying for Meds: Decline to Answer Currently Unemployed: Decline to Answer Education: Bachelor's Degree Difficulty w/ Childcare or Family Care: No Living arrangements: with family Additional living arrangements comments: [facility] Gender identity (if verbalized by the patient): Female Sexual Orientation (if Verbalized by the Patient): Straight or Heterosexual Spiritual care concerns: No Anes - Eval Final PreProcedure Day of Procedure 10/15/24 12:23 Patient weight: normal Heart: regular rate and rhythm Lungs: clear to auscultation Airway: Mallampati scale class II Neurological: alert and oriented Last oral intake: >/= 8 hours ASA classification: II Emergent: yes Anesthetic plan: proceed Anesthesia type and monitoring: general ETT and standard monitoring Results Review: All pre-operative results and documents have been reviewed as part of the pre-operative evaluation. Informed Consent: The patient's anesthetic plan and its attendant risks and benefits were discussed with the patient/family/POA. Questions were solicited and answers provided to the satisfaction of the patient/family/POA.
[2024-10-15] MEDS: ceFAZolin 2 GM/D5W 50 ML 2 GM/50 ML BAG IVPB ×2 (12:42→20:16)
[2024-10-15] MEDS: SODIUM CHLORIDE 0.9% IV 38.7 ML, ROPivacaine HCL 1% 200 MG, KETOROLAC INJ (*BKC) 15 MG,... INFILTRATE (13:10)
[2024-10-15] MEDS: GENTAMICIN BONE CEMENT REFOBACIN 1 EACH TOPICAL (14:20)
[2024-10-15] MEDS: TRANEXAMIC ACID 1,000 MG/10 ML AMPUL 1000 MG IV PUSH (14:25)
[2024-10-15] MEDS: fentaNYL CITRATE INJ (*CRX) 100 MCG/2 ML VIAL 25 MCG IV PUSH ×8 (15:06→15:34)
[2024-10-15] MEDS: HYDROmorphone HCL INJ (*CRX) 1 MG/ML SYR 0.5 MG IV PUSH ×4 (15:55→16:26)
--- NOTE | 2024-10-15 16:43 | W.PM.PROC2 ---
Procedure Note - Detailed Date of Procedure 10/15/24 Pre-op Diagnosis Right knee degenerative arthritis. Post-op Diagnosis Same Procedure Performed Cal[place], kinematically aligned total knee replacement right knee. Surgeon Deonte Pritchard MD Adult Care Manager Stephanie Whipple PA-C Anesthesia General Indications Patellofemoral arthritis. Findings According to the calipered kinematic alignment principles, the knee was balanced by the following verification checks incorporating 6 caliper measurements, using an insert goniometer to select the insert thickness, and adjusting the tibial resection following the kinematic alignment algorithm (see figure 160.10 published in [employer] chapter on kinematic alignment total knee arthroplasty.) The steps verified the femoral and tibial components were kinematically aligned coincident to the patient's pre arthritic joint lines, which closely restored the [place] tibial compartment forces and ligament laxities without ligament release. The Stickybitsacta 3G MultimediaK SperiKA knee, designed specifically for kinematic alignment, fit optimally. The record of verification checks were documented and scanned into the chart. Distal Femoral Resection: Distal Medial 8 mm, Distal Lateral 8 mm Target thickness of 8mm Unworn, 6mm Worn (No Cartilage). Posterior Femoral Resection: Posterior Medial 7 mm, Posterior Lateral 7 mm. Target thickness of 7mm Unworn, 5mm Worn (No Cartilage). Description of Procedure General anesthesia was administered. A well-padded tourniquet was placed high on the thigh. The limb was prepped and draped in the usual sterile fashion. The limb was exsanguinated and the tourniquet inflated to 300 mmHg. A longitudinal incision was created over the midline of the knee. Sharp dissection was taken through subcutaneous tissues. Electrocautery was used for hemostasis. A trivector approach to the knee joint was performed. The ACL, anterior horns of the menisci, and fat pad were excised, and a subperiosteal dissection was carried along the posterior medial border of the tibia. The thickness of the [place] patella was measured with a caliper. The patella was resected using the oscillating saw. The best fitting anatomic patella button was selected. The fixation holes were drilled. When the patella and patella buttons combined thickness was thicker than the [place] patella, the patella was recut. Starting midway between the top of the notch in the anterior femoral cortex, I drilled a 9 mm diameter hole parallel to the anterior cortex to minimize flexion of the femoral component and promote patella tracking. I verified the existence of a 5-10 mm bone bridge between the posterior aspect of the hole and the anterior limit of the intercondylar notch. An intraosseous positioning yelena was inserted 10 cm into the femur perpendicular to the distal joint line and parallel to the anterior cortex. I used a distal femoral referencing guide that compensated 2 mm when the cartilage was worn on the distal medial femoral condyle, and 2 mm when the cartilage was worn on the distal lateral femoral condyle. The basis for setting the distal and posterior femoral resection guide is knowing that the varus and valgus grade II to IV Kellegren-Reji osteoarthritic knees have negligible bone wear at 0? and 90? and that the mean full-thickness cartilage wear approximates 2 mm. I measured the thickness of distal femoral resections with a caliper to +/- 0.5 mm. The thickness of each resection was adjusted to match the thickness of the respective condyle of the femoral component within 0.5 mm of target after compensating for cartilage wear and kerf. When the distal resection was 1-2 mm too thin, a recut guide was used to adjust the cut. When the distal resection was too thick, a 1 or 2 mm thick washer was fixed to the back of the 4-in-1 chamfer block to lisbet a corrective gap between the femoral component and distal femur. I set posterior femoral referencing guide at 0? orientation to position the pin holes for the 4 in 1 chamfer block. The melvina wing measured the width of the distal femoral resection and selected the size of the 4 in 1 chamfer block and femoral component. The AP sizer confirmed the size. I measured the thickness of the posterior femoral resections with a caliper before making the anterior and chamfer cuts. I adjusted the thicknesses of each resection to match the thickness of the respective condyle of the femoral component within +/-0.5 mm after compensating for cartilage wear and curve. When a posterior resection femoral resection was 1-2 mm too thick or thin a corrective correction was made by shifting or rotating the 4 in 1 chamfer block as needed. The chamfer block was secured in the correct position with compression screws. The anterior and chamfer femoral resections were made. These caliper measurements and corrections verified that the femoral component was set coincident with the patient's pre-arthritic distal and posterior femoral joint lines. I removed all the medial and lateral femoral and tibial osteophytes to restore the pre arthritic length of the medial and lateral collateral ligaments. I abel AP lines along the major axis of the lateral tibial plateau in between the tibial spines which identified the flexion extension plane of the knee. A conventional extramedullary tibial resection guide was applied to the ankle. An melvina wing was placed medially in the saw slot. The varus valgus angle of the tibial resection guide was adjusted until the guide paralleled the proximal tibial articular surface after compensating for cartilage and bone wear. The slope of flexion extension angle of the tibial resection guide was adjusted until the melvina wing paralleled the slope of the medial tibia after compensating for wear. The AP axis of the tibial resection guide was adjusted parallel to the two lines. The proximal tibia was resected, partially releasing the insertion of the posterior cruciate ligament. The thickness of the medial and lateral lateral tibial condyle was measured at the base of the tibial spines. I visually verified the slope of the medial border of the resection was parallel to the patient's pre arthritic slope after compensating for cartilage and bone wear. I removed the remnants of the posterior horns of the menisci and posterior osteophytes and cauterized the inferior lateral genicular vessels. The Aquamantys bipolar device was also used to for additional hemostasis. When the knee had a preoperative flexion contracture of 20? or more I teased the capsule off the posterior femur with a curved 3 quarter-inch osteotome. I administered the posterior femoral periosteal injection by delivering 10 cc using a 20 gauge spinal needle at the most medial and 10 cc at the most lateral femoral spur surface which reduced the risk of injury to the posterior neurovascular structures. I followed 6 options in a decision tree to fine tune the varus valgus and posterior slope orientation of the tibial component to restore the patient's pre arthritic tibial joint line and limb alignment. First, I adjusted the varus-valgus orientation of the proximal tibia resection working in 1 degree to 2 degree increments until there was negligible medial and lateral lift off of the distal femoral and proximal tibial resection from the spacer block during a varus valgus laxity assessment in extension. I selected the largest anatomic shape trial tibial base plate that fit within the cortical boundary of the proximal tibial resection. The base plate was best fit parallel to the cortical boundary which set the Internal-external orientation of the anterior to posterior and medial to lateral positions. The best fit method set the AP axis of the tibial base plate and insert parallel to the flexion extension plane of the pre arthritic knee. I pinned the trial tibial base plate, prepared the cruciate slot, and fixed the base plate to the tibia with the cruciate stem. I inserted the trial femoral component. The knee was placed in full extension. Varus valgus laxity is of the knee with trial components were assessed. When asymmetric laxity was observed a 1-2 degree varus or valgus recut guide was used to fine tune the tibial resection until the laxity was 1 degree or less in full extension like the [place] knee. The following steps determined the optimal insert thickness within +/-1 mm. First I inserted an insert goniometer that matched the thickness of the spacer block. I reduced the patella and then with the knee in maximum extension, I verified the knee hyperextended a few degrees and had negligible varus valgus laxity, like the pre arthritic knee. He required a release of the posterior lateral capsule. Next, I measured the external tibial orientation which was the angle the insert goniometer intersected the sagittal line on the medial condyle of the femoral trial component. Then with the knee in 15-30 degrees flexion I verified a 3-4 mm gap in the lateral compartment and no gap in the medial compartment during a 2nd varus valgus laxity test. Next, I placed the knee in 90? of flexion and the foot resting on the operating table and measured the internal tibial orientation. I repeated the steps until I identified the insert thickness that provided the highest external tibia orientation in extension and the highest internal tibial orientation at 90? flexion without anterior lift-off of the insert from the tibial base plate. The insert with this thickness was implanted. I applied a posterior drawer test with the tibia distracted by gravity and verified no posterior subluxation of the tibia relative to the femur. The patella remained centered on the trochlea and tracked well throughout the entire arc of flexion and extension. I used pulse lavage to clean the bony surfaces of debris and dried bone. I cemented the tibial, femoral, and patellar components using 1 bag of methylmethacrylate with Gentamycin, then rechecked the stability at full extension, 15-30 degrees, and 90? flexion and verified restorationism of the entire arc of motion of the knee. The circulating nurse confirmed the sponge and needle counts were correct. I used pulse lavage to rinse the joint and wound. The extensor mechanism was closed with interrupted #1 Vicryl suture and #1 running Stratafix suture. The subcutaneous layer was closed with interrupted #1 Vicryl suture followed by 2-0 Stratafix and 3-0 Stratafix. Steri-Strips placed on the skin. Silver impregnated occlusive dressing applied to the wound. A light gauze wrap and Richard bandage were placed. The patient was transferred to the recovery room in stable condition. There were no complications. Implants Medacta GMK spheriKA Femoral component SpheriKA size 4, tibial component size t3i4, vitamin-E flex insert, thickness 11mm, Anatomic patella implant size 2. Estimated Blood Loss 100 Drains No Pathology None sent Complications No immediate complications Condition Stable Disposition PACU [facility] Billing Surgery - Charge Forward: Surgery Billing
--- NOTE | 2024-10-15 17:10 | ADMGEN ---
This patient, Tom Wall, was admitted to 3 [facility] Room 301-01. Patient/family oriented to hospital policies and general routines including ID bracelet, bed and alarms, visiting hours, pain management, procedures, bathroom and other care routines, personal items, smoking policy, room service/diet, and visiting hours. Information on how to activate the Rapid Response Team has been discussed. Patient/Family are encouraged to report perceived risks to care and to ask questions if they do not understand what they are told or what they should do.
[2024-10-15] MEDS: ACETAMINOPHEN 325 MG TABLET 650 MG PO (17:36)
[2024-10-15] MEDS: oxyCODONE/ACETAMINOPHEN (*CRX) 10-325 MG TABLET 1 TAB PO (17:37)
[2024-10-15] MEDS: SENNA/DOCUSATE SODIUM TABLET 2 TAB PO (17:38)
[2024-10-15] MEDS: CYCLOBENZAPRINE HCL 10 MG TABLET PO (17:38)
[2024-10-15] MEDS: MELOXICAM 7.5 MG TABLET PO (17:40)
[2024-10-15] MEDS: ONDANSETRON INJ 4 MG/2 ML VIAL IV PUSH (18:31)
[2024-10-15] MEDS: ASPIRIN 81 MG ENTERIC TABLET PO (20:15)
[2024-10-15] MEDS: FAMOTIDINE 20 MG TABLET PO (20:15)
[2024-10-15] MEDS: traMADol HCL (*CRX) 50 MG TABLET PO (20:15)
[2024-10-15] MEDS: diphenhydrAMINE HCl INJ 50 MG/ML VIAL 25 MG IV PUSH (20:16)
[2024-10-15] MEDS: oxyCODONE/ACETAMINOPHEN (*CRX) 5-325 MG TABLET 1 TABLET PO (21:31)
[2024-10-16 00:11] VITALS: BP 139/68; PULSE 79; RESP 18; TEMP 36.9; O2SAT 100
[2024-10-16] MEDS: ACETAMINOPHEN 325 MG TABLET 650 MG PO ×2 (01:53→06:20)
[2024-10-16] MEDS: oxyCODONE/ACETAMINOPHEN (*CRX) 5-325 MG TABLET 1 TABLET PO ×2 (01:53→09:24)
[2024-10-16] MEDS: CYCLOBENZAPRINE HCL 10 MG TABLET PO (02:48)
[2024-10-16 04:00] VITALS: BP 131/68; PULSE 86; RESP 16; TEMP 37; O2SAT 99
[2024-10-16] MEDS: ceFAZolin 2 GM/D5W 50 ML 2 GM/50 ML BAG IVPB (04:30)
[2024-10-16] MEDS: oxyCODONE/ACETAMINOPHEN (*CRX) 10-325 MG TABLET 1 TAB PO (06:20)
[2024-10-16] MEDS: ONDANSETRON INJ 4 MG/2 ML VIAL IV PUSH (06:21)
[2024-10-16 06:33] LABS: Basophils Percent Auto 0.2 % (0.2-1.2); Eosinophils Percent Auto 0.1 % (0-4.4); Hematocrit 34.7 % (37.0-47.0); Hemoglobin 11.2 g/dL (12.0-15.0); Immature Granulocyte Absolute 0.04 K/mm3 (0.00-0.031); Immature Granulocyte Percent A 0.4 % (0-0.5); Lymphocytes Absolute Auto 1.33 K/mm3 (0.9-3.2); Lymphocytes Percent Auto 13.8 % (18.3-44.2); Mean Corpuscular HGB Conc 32.3 g/dl (32-36); Mean Corpuscular Hemoglobin 28.3 pg (26-34); Mean Corpuscular Volume 87.6 fl (80-100); Mean Platelet Volume 8.5 fl (7.4-10.4); Monocytes Percent Auto 10.5 % (2.6-8.5); Neutrophils Absolute Auto 7.2 K/mm3 (1.3-6.7); Platelet Count Result 267 k/mm3 (150-375); Red Blood Count 3.96 M/mm3 (4.2-5.4); Red Cell Distribution Width 13.2 % (11.5-14.5); White Blood Count 9.7 K/mm3 (4.5-10.0)
[2024-10-16 06:43] LABS: Anion Gap 7 mmol/L (4-12); Blood Urea Nitrogen 10 mg/dL (7-17); Calcium 8.5 mg/dL (8.4-10.2); Carbon Dioxide 29 mmol/L (22-30); Chloride 99 mmol/L (98-107); Estimated CRCL calculation 72 ml/min; Estimated Glomerular Filt Rate > 60; Glucose 106 mg/dL (65-110); Potassium 3.7 mmol/L (3.4-5.0); Sodium 135 mmol/L (137-145)
[2024-10-16 07:54] VITALS: BP 114/60; PULSE 83; RESP 16; TEMP 36.3; O2SAT 99
[2024-10-16] MEDS: ASPIRIN 81 MG ENTERIC TABLET PO (09:23)
[2024-10-16] MEDS: predniSONE 5 MG TABLET PO (09:23)
[2024-10-16] MEDS: FAMOTIDINE 20 MG TABLET PO (09:23)
[2024-10-16] MEDS: SENNA/DOCUSATE SODIUM TABLET 2 TAB PO (09:23)
[2024-10-16] MEDS: MELOXICAM 7.5 MG TABLET PO (09:23)
[2024-10-16] MEDS: polyethylene glycoL 3350 17 GM POWD.PACK PO (09:24)
--- NOTE | 2024-10-16 10:17 | PM.DS ---
DS: Admitting Diagnosis Discharge Date 10/16/24 Admitting Diagnosis Knee arthritis. DS: Discharge Diagnosis Discharge Diagnosis (1) Status post total right knee replacement: Code(s): Z96.651 - Presence of right artificial knee joint Status: Acute Assessment and Plan: Postop day 1: Right total knee arthroplasty. Patient tolerated procedure well. No complications. Pain manageable with pain medication. No numbness or tingling. We had a lengthy discussion regarding postoperative wound care, limitations, expectations, and exercises. Patient shows good understanding. She has had initial physical therapy and is tolerating it well. DVT prophylaxis: 81 mg baby aspirin b.i.d. for 14 days. Pain medication: Percocet. Prednisone. Meloxicam. Patient has followup appointment with Dr. Pritchard in 3 weeks. DS: Summary Hospital Course Reason for hospitalization: Total knee arthroplasty Hospital Course: Patient tolerated procedure well. Has had initial PT/OT. Status at Discharge Functional status at discharge: uses cane/walker Overall status at discharge: patient is progressing back to baseline Time Spent with Patient Time attestation: Total time spent providing and/or coordinating discharge services: Exam Narrative: Normal weight female. Resting comfortably in bed. Wearing compression socks bilaterally. Dressing intact with no drainage. Mild swelling. Small area of ecchymosis. No erythema. No hematoma. Range of motion limited due to pain. Calf nontender. Neurologic status intact. No varicosities. Distal pulses palpable. DS: Data Data Completed and Pending Labs on day of discharge: Labs from last 24 hours 10/16/24 10/15/24 05:32 10:59 WBC 9.7 RBC 3.96 L Hgb 11.2 L Hct 34.7 L MCV 87.6 MCH 28.3 MCHC 32.3 RDW 13.2 Plt Count 267 MPV 8.5 Immature Gran % (Auto) 0.4 Neut % (Auto) 75.0 H Lymph % (Auto) 13.8 L [place] % (Auto) 10.5 H Eos % (Auto) 0.1 Baso % (Auto) 0.2 Lymph # (Auto) 1.33 [place] # (Auto) 1.0 H Eos # (Auto) 0.0 Baso # (Auto) 0.0 Abs Immat Gran (auto) 0.04 H Absolute Neuts (auto) 7.2 H Absolute Nucleated RBC 0.000 Nucleated RBC % 0.0 Sodium 135 L Potassium 3.7 Chloride 99 Carbon Dioxide 29 Anion Gap 7 BUN 10 Creatinine 0.70 Estim Creat Clear Calc 72 Estimated GFR > 60 Glucose 106 Calcium 8.5 Blood Type O Positive Antibody Screen Negative Discharge Plan Discharge Patient Disposition: Home, Self-Care Discharge Instructions: See green instruction sheets Stand Alone Forms: General Discharge Instructions Follow-up/Referrals: Stephanie Whipple PA [Physician Errand Runner] - Discharge Medications: New aspirin 81 mg tablet,delayed release (DR/EC) 81 mg PO BID 14 Days Qty: 28 0RF meloxicam 15 mg tablet 15 mg PO DAILY Qty: 30 0RF Rx Instructions: Cut in half. Take 1/2 in morning and 1/2 at night. Take with food. Stop if stomach upset. prednisone 5 mg tablet 5 mg PO DAILY 21 Days Qty: 21 0RF oxycodone-acetaminophen 5-325 mg tablet 1 - 2 tablet PO Q4-6H PRN (Reason: pain) 7 Days Qty: 30 0RF Continued vilazodone [Viibryd] 10 mg tablet 10 mg PO QAM multivitamin [Daily Multi-Vitamin] Tablet 1 tablet PO DAILY carisoprodol [Soma] 250 mg tablet 250 mg PO QHS PRN (Reason: Muscle Spasm) calcium carbonate [Calcium 600] 600 mg calcium (1,500 mg) tablet 600 mg PO DAILY alprazolam 0.5 mg tablet 0.5 mg PO BID PRN (Reason: Anxiety) dextroamphetamine-amphetamine 20 mg tablet 1 tablet PO BID Patient Comments: TAKING PRN FOR ADD L.acid-B.animalis,bifi,inf,sobia 3 billion cell Capsule 1 cap PO DAILY estradiol [Estrace] 0.01 % (0.1 mg/gram) cream 1 g vaginal 2XW Qty: 42.5 3RF Rx Instructions: Start after loading dose. Held ibuprofen 200 mg Capsule 400 mg PO Q6H PRN (Reason: Pain) Hold Instructions: Resume on 10/29/24. Hold while taking Meloxicam. acetaminophen 500 mg Capsule 1,000 mg PO Q6H PRN (Reason: Pain) Hold Instructions: Resume on 10/29/24. Do not take more than 3,000 mg in 24 hours. Pain medication has 325mg Tylenol in each pill.
== END 2024-10-16 11:00 | disposition home or self-care (01) ==
LOC: ANHSURGERY 09:59 → ANH3MEDSUR 16:46
PROVIDERS: Physician Assistant Surgical; PCP Physician Assistant; Visit Provider Orthopaedic Surgery
PROC: (CPT 27447; principal; 2024-10-15 12:00)
DX: M17.11 Unilateral primary osteoarthritis, right knee (principal); M25.761 Osteophyte, right knee; M81.0 Age-related osteoporosis without current pathological fracture; F32.A Depression, unspecified; K58.9 Irritable bowel syndrome, unspecified; M05.9 Rheumatoid arthritis with rheumatoid factor, unspecified; Z79.1 Long term (current) use of non-steroidal anti-inflammatories (NSAID); Z79.82 Long term (current) use of aspirin; Z79.891 Long term (current) use of opiate analgesic; Z79.52 Long term (current) use of systemic steroids; Z98.890 Other specified postprocedural states; Z98.891 History of uterine scar from previous surgery; Z98.1 Arthrodesis status; Z80.8 Family history of malignant neoplasm of other organs or systems; Z80.3 Family history of malignant neoplasm of breast; Z80.42 Family history of malignant neoplasm of prostate; Z82.49 Family history of ischemic heart disease and other diseases of the circulatory system
CPT/HCPCS: 27447; 36415; 73560; 80048; 85025; 86850; 86900; 86901; 97110; 97161; 97165; 97530; C1776; A9270; C1713; J0171; J0690; J1100; J1171; J1200; J1885; J2003; J2250; J2405; J2704; J2795; J3010; J7120; J7512

== ENCOUNTER 2025-04-03 15:12 | Outpatient (CLI) | payer BC, SELFPAY ==
--- NOTE | ~2025-04-03 | MM_ITS ---
EXAMINATION: MM screening winnie BI w vladimir HISTORY: Screening TECHNIQUE: Craniocaudal and mediolateral oblique 3-D tomosynthesis images were obtained and synthetic 2-D images were generated. CAD analysis was submitted and interpreted. COMPARISON: Comparison to multiple prior studies sequentially, with oldest reviewed study dated 07/13. BREAST PARENCHYMAL COMPOSITION: Not dense: There are scattered areas of fibroglandular density. FINDINGS: There is no evidence of suspicious mass, calcification, or architectural distortion to sugg est malignancy in either breast. There has been no suspicious interval change. IMPRESSION: 1. No mammographic evidence of malignancy. 2. Recommend routine screening mammography in one year. BI-RADS Category 1: Negative Reviewed, dictated and finalized at location A.
--- OUTSIDE RECORDS SUMMARY | 2025-04-03 15:18 | XMS_ITS | Clinical Summary ---
Author Organization [facility] Care Team Providers Care Lead Burner Apprentice Name Role Phone Unavailable Primary Care Provider Unavailabl e Social History Tobacco Use Types Packs/Day Years Used Date Smoking Tobacco: Never Assessed Comments Unknown Sex and Gender Information Value Date Recorded Sex Assigned at Not on file Legal Sex Female 4:10 AM CDT Gender Identity Not on file Sexual Orientation Not on file Plan of Treatment Health Maintenance Due Date Last Done Comments Hepatitis C Virus (HCV) Screening 1964 Pap Smear 1985 Cervical Cancer Screening (CCS) 1994 HPV/Cotest 1994 Colonoscopy 2009 Colorectal Cancer Screening 2009 Cologuard 2014 Immunochemical Fecal Occult Blood 2014 Mammogram 2014 Pneumococcal Immunization (50+ years) (2 of 2 - PPSV23) 10/11/2019 10/11/2018 Influenza Immunization (#1) 07/29/202404/2020, 09/11/2019, 08/06/2018, Additional history exists SARS-COV-2 Immunization ( - 2023- season) 2024 Respiratory Syncytial Virus (RSV) Immunization (Adult) (1 - 1-dose 75+ series) 2039 Hepatitis B Immunization Completed 998, 03/19/1998, 01/17/1997 DTaP/Tdap/Td Immunization Discontinued 12/14/2017 TdaP Immunization Completed 12/14/2017 Pneumococcal Immunization Combined Discontinued 10/11/2018 Zoster Immunization Completed 12/27/2019, 9 Meningococcal Immunization (ACWY) Aged Out No longer eligible based on patient's age to complete this topic Rotavirus Immunization Aged Out No lo nger eligible based on patient's age to complete this topic
--- OUTSIDE RECORDS SUMMARY | 2025-04-03 15:18 | XMS_ITS | Encounter Summary ---
Author Organization [facility] Address [address] [place] [address] Care Team Providers Care Assistant Professor Of Criminal Justice Name Role Phone Dorinda Cervantes MD Primary Care Provider [phone] Reason for Visit * Reason Onset Date Comments Refill Request 10/23/2019 Encounter Details Date Type Department Care Team (Late st Contact Info) Description 10/23/2019 Refill [facility] [address] [place] [address] Clara Barber MD [address] [place] [address] Refill Request Social History Tobacco Use Types Packs/Day Years Used Date Smoking Tobacco: Never Smokeless Tobacco: Never Alcohol Use Standard Drinks/Week Comments Yes 0 (1 standard drink = 0.6 oz pur e alcohol) socially Comments No Sex and Gender Information Value Date Recorded Sex Assigned at Not on file Legal Sex Female 6:45 PM GAS BRAZER Gender Identity Not on file Sexual Orientation Not on file 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 Drug type:DERICK Pharmacy:[id number] [address] [place] [address] [address] Patient call back number: [phone] . Following Guideline rules, we informed the patient clinic will contact them within 24 business hours. BRAZER documented in this encounter Plan of Treatment Not on file documented as of this encounter Visit Diagnoses Diagnosis Fibromyalgia- Primary Mylagia and myositis, unspecified documented in this encounter Care Teams Assistant Professor Of Criminal Justice Relationship Specialty Start Date End Date Dorinda Cervantes MD [facility] [place] [address] PCP - General 01/24/19 documented as of this encounter
--- OUTSIDE RECORDS SUMMARY | 2025-04-03 15:18 | XMS_ITS | Continuity of Care Document ---
Author Organization [facility] Address [address] [place] [address] [address] [place] [address] Phone Care Team Providers Care Regenerator Operator Name Role Phone Zulma Law Unavailable Unavailable Advance Directives Directive Yes / No Effective Date File Name No Information Encounters Encounter Description Practice Location Reason(s) For Visit Diagnoses Date Provider Providers Copied on Encounter [facility], [address] [place] [address] [address], [place], [place], [id number], tel:[phone] [facility] No Information Mar-0 7-200 5 Ani Maya. [address] , [address], [place], [place], [facility], . tel:[phone] Referring Provider: Zulma Leonardo, [address], [place], [place], [facility]. tel:[phone] Family History Family Member Type Diagnosis Age At Onset No Information Payers Payer name Insurance type Covered republican ID Authoriza tion(s) No Information Social History Type Description Quantity Date Captured Comments Sex Female Smoking Status No Information Chief Complaint And Reason For Visit No Information Reason For Referral Reason For Referral No Information History Of Present Illness Encounter Date Complaint History Of Prese nt Illness No Information Functional Status Date Functional Assessmen t No Information Instructions Date Instruction Additional Infor mation No Information Assessments Type Assessment Date No Information Patient Care Teams Name Effective Dates (start - stop) Status Members No Information
--- OUTSIDE RECORDS SUMMARY | 2025-04-03 15:18 | XMS_ITS | Patient Health Record ---
Author Organization [facility] Address [address] [place] [address] Support Name Relationship Address Phone Tom Wall Guarantor Unknown [phone] Reason For Referral No Information Medications Medication SIG (Take, Route, Frequency, Duration) Notes Start Date End Date Status HYDROcodone-Acetamin ophen 5-325 MG 1 Three Times A Day, As Needed Oral 05/01/2010 Active Soma 350 MG 1 Three Times A Day, As Needed Oral 05/14/2011 Active Medrol 4 MG as directed Oral 08/05/2010 Active Lunesta 1 MG 1 Every Day At Bedtime, As Needed Oral 07/21/2010 Active Acetaminophen-Codein e 300-30 MG 1 Three Times A Day, As Needed Oral 12/09/2010 Active Cymbalta 60 MG 1 Every Day Oral 05/01/2010 Active Norvasc 5 MG 1 Every Day for Raynaud's Oral 08/26/2009 Active Plaquenil 200 MG 2 Every Day Oral 12/09/2010 Active Nuvigil 1 Every Morning *Pick strength-form from Recurly for eRX* 07/21/2010 Active Immunizations Vaccine Route Administration Date Status Comme nts Infuenza, trivalent, recombinant, preservative free Unknown 09/02/2009 Administered migrated LegPa tid= [id number] Date=09/02/2009 Vac= Influenza Plan Of Treatment No Information Insurance Providers Payer Name Payer Address Payer Phone Subscriber Number Group Number Insured Name Patient Relationship to Insured Coverage Start Date Coverage End Date [place] [address] [place] [address] [id number] Tom Wall Self - patient is the insured 1
--- OUTSIDE RECORDS SUMMARY | 2025-04-03 15:18 | XMS_ITS | Clinical Summary ---
Author Organization [facility] Address [address] [place] [address] Care Team Providers [employer] Name Role Phone Dorinda Cervantes MD Primary Care Provider [phone] Source Comments [facility],non-owned Affiliates and Associated Physician Practices is amultiple site organization consisting of ambulatory clinics and hospital sitesin [place], [place], [place] and [place]. This disclosure is being madepursuant to the Care Everywhere program and may not contain all information available regarding this patient. Last updated 18.[facility] Allergies Active Allergy Reactions Criticality Noted Date Comments Hydromorphone Angioedema High 07/12/2017 Penicillins Rash Medium 01/24/2019 Sulfa Drugs Anaphylaxis,Other High Reaction: ANAPHYLAXIS, , , Reaction: fh anaphylactic, Medications * Be aware that medications may not be up to date on this document. Alwaysverify current medications with the patient. venlafaxine XR 24hr (EFFEXOR XR) 150 MG capsule Take 150 mg by mouth daily with breakfast Active traMADol (ULTRAM) 50 MG tablet Take 2 tablets by mouth every 6 hours as needed for Pain 9 Active ondansetron (ZOFRAN) 4 MG tablet 9 Active pramipexole (MIRAPEX) 0.25 MG tablet Take 1 tablet by mouth 3 times daily 90 tablet 9 Active phentermine (ADIPEX-P) 37.5 MG tablet Take 1.5 tablets by mouth once daily 0 9 Active amitriptyline (ELAVIL) 25 MG tablet Take 25 mg by mouth at bedtime 9 Active ALPRAZolam (XANAX) 1 MG tablet Take 1 mg by mouth 3 times daily as needed 9 Active cyclobenzaprine (FLEXERIL) 5 MG tablet Take 1 tablet by mouth at bedtime 30 tablet 4 9 Active diclofenac-miSO PROStol EC (ARTHROTEC 50) 50-0.2 MG tablet Take 1 tablet by mouth 2 times daily with morning and evening meal 60 tablet 4 9 Active methocarbamol (ROBAXIN) 500 MG tablet Take 500 mg by mouth 2 times daily as needed 0 9 Active Active Problems Problem Noted Date Diagnosed Date Fibromyalgia 02/28/2019 Family History Medical History Relation Name Comments Cancer - Prostate Father Lupus Maternal Aunt Cancer - Breast Maternal Grandmother Arthritis - Rheumatoid Paternal Grandmother Relation Name Status Comments Father Maternal Aunt Maternal Grandmother Paternal Grandmother Social History Tobacco Use Types Packs/Day Years Used Date Smoking Tobacco: Never Smokeless Tobacco: Never Alcohol Use Standard Drinks/Week Comments Yes 0 (1 standard drink = 0.6 oz pur e alcohol) socially Comments No Sex and Gender Information Value Date Recorded Sex Assigned at Not on file Legal Sex Female 6:45 PM [employer] Gender Identity Not on file Sexual Orientation Not on file 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 Not on file Not on file Not on file Last Filed Vital Signs Vital Sign Reading Time Taken Comments Blood Pressure 124/86 02/28/2019 11:48 AM CDT Pulse 68 02/28/2019 11:48 AM CDT Temperature 37.1 C (98.7 F) 02/28/2019 11:48 AM CDT Respiratory Rate - - Oxygen Saturation - - Inhaled Oxygen Concentration - - Weight 72.1 kg (159 lb) 02/28/2019 11:48 AM CDT Height 171.5 cm (5' 7.5 ) 02/28/2019 11:48 AM CD T Body Mass Index 24.54 02/28/2019 11:48 AM CDT Plan of Treatment Health Maintenance Due Date Last Done Comments COLOGUARD (AGES 45-75) - COL ON CA SCREENING 1964 COLON MONITORING 1964 COLONOSCOPY - COLON CA SCREENING 1964 CT COLONOGRAPHY - COLON CA SCREENING 1964 Colorectal Cancer Screening 1964 FIT - COLON CA SCREENING 1964 FLEX SIG - COLON CA SCREENING 1964 LIPID TESTING 1964 MAMMOGRAM 1964 HIV SCREENING 1979 HEPATITIS C SCREENING 07/18/1982 DTAP/TDAP/TD VACCINES (1 - Tdap) 1983 PNEUMOCOCCAL VACCINE 50+ (1 of 1 - PCV) 2014 ZOSTER VACCINE (1 of 2) 2014 COVID-19 VACCINE (1 - 2023-2 5 season) 2024 DEPRESSION SCREENING 11/28/2024 INFLUENZA VACCINE (Season Ended) 2025 09/26/20 15 Respiratory Syncytial Virus (RSV) Vaccine Pt: or over 60 yrs (1 - 1-dose 75+ series) 2039 HEPATITIS B VACCINE Aged Out No longe r eligible based on patient's age to complete this topic HIB VACCINE Aged Out No longer eligi ble based on patient's age to complete this topic HPV VACCINE Aged Out No longer eligi ble based on patient's age to complete this topic MENINGOCOCCAL (Group B) VACC INE SHARED DECISION-MAKING Aged Out No longer eligibl e based on patient's age to complete this topic MENINGOCOCCAL GROUPS A/C/Y/W VACCINE Aged Out No longer eligible b ased on patient's age to complete this topic Insurance [facility] Care Teams [employer] Relationship Specialty Start Date End Date Dorinda Cervantes MD [facility] [place] [address] PCP - General 01/24/19
--- OUTSIDE RECORDS SUMMARY | 2025-04-03 15:18 | XMS_ITS | Data Portability ---
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 Plan of Treatment Reminders Order Date Submit Date Provider Last Modified By Organization Details Last Modified Time Details Appointments Follow Up 15 2024 10:30A M RAYMON Levy Not available Not available Not available Lab MICHAEL (antinucl ear antibodie s) panel, serum [address] (Lab), [address] [place], [address], 04/24/2024 09:07:25 magnesium , serum or plasma [address] (Lab), [address] [place], [address], 04/24/2024 09:07:25 ferritin, serum or plasma [address] (Lab), [address] [place], [address], 04/24/2024 09:07:25 lipid panel, serum [address] (Lab), [address] [place], [address], 04/24/2024 09:07:26 CMP, serum or plasma [address] (Lab), [address] [place], [address], 04/24/2024 09:07:26 CBC w/ auto diff [address] (Lab), [address] [place], [address], 04/24/2024 09:07:26 TSH, serum or plasma [address] (Lab), [address] [place], [address], 04/24/2024 09:07:26 glycohemo globin, total, blood [address] (Lab), [address] [place], [address], 04/24/2024 09:07:26 T4, free, serum [address] (Lab), [address] [place], [address], 04/24/2024 09:07:26 CK (creatine kinase), total, serum [address] (Lab), [address] [place], [address], 04/24/2024 09:07:26 vitamin B12 + folate, serum or blood [address] (Lab), [address] [place], [address], 04/24/2024 09:07:25 vitamin D, 25-hydrox y, total, serum [address] (Lab), [address] [place], [address], 04/24/2024 09:07:25 Referral None recorded. Procedures None recorded. Surgeries None recorded. Imaging None recorded. Medication Orders clobetaso l 0.05 % scalp solution 2024 025 [facility][id number], [address] [facility], [place], [place], [id number], 03/14/2025 12:53:44 baclofen 5 mg tablet 2024 [facility] #45263, [address] [place], [place], [id number], 03/14/2025 13:02:03 ketorolac 60 mg/2 mL intramusc ular solution 2024 [email or web address] Not available 03/14/2025 14:03:14 vilazodon e 10 mg tablet 2024 [id number] [address] [place], [address] [facility], [place], [address], 03/14/2025 13:09:48 alprazola m 0.5 mg tablet 2024 025 [facility] #58305, [address] [place], [place], [id number], 03/14/2025 12:57:53 dextroamp hetamine- amphetami ne 20 mg tablet 2024 025 [facility] #05505, [address] [place], [place], [id number], 03/14/2025 12:57:51 clindamyc in HCl 150 mg capsule 2024 025 [facility] #48780, [address] [facility], [place], [place], [id number], 12/18/2024 12:02:30 alprazola m 0.5 mg tablet 2024 025 [facility] #02028, [address] [facility], [place], [place], [id number], 12/18/2024 12:07:48 dextroamp hetamine- amphetami ne 20 mg tablet [address] [facility] #73410, [address] [facility], [place], [place], [id number], 12/21/2024 18:18:05 dextroamp hetamine- amphetami ne 20 mg tablet 2023 024 [facility] #08297, [address] [facility], [place], [place], [id number], 10/05/2024 10:03:29 scopolami ne 1 mg over 3 days transderm al patch 2023 024 [facility] #97772, [address] [facility], [place], [place], [id number], 07/12/2024 15:36:25 alprazola m 1 mg tablet [address] [facility] #47851, [address] [facility], [place], [place], [id number], 08/15/2024 12:21:53 dextroamp hetamine- amphetami ne 20 mg tablet 2023 024 [facility] #03014, [address] [facility], [place], [place], [id number], 07/12/2024 15:34:40 baclofen 5 mg tablet [address] [facility] #57048, [address] [facility], [place], [place], [id number], 04/25/2024 12:19:56 Patient TargetsNo targets recorded. Patient Instructions Encounter Date Encounter Id Patient Instructions Last Modified By Organization Details Last Modified Time 12/18/2024 [id number] she has a rigid wrist brace , she wears at night , wears hand-laurie during the day , boils on back , she wants an antibiotic , does not want anything to happen to her right knee replacement [email or web address] Not available 12/21/2024 18:21:05 Reason for Referral None Reported. Results Created Date Observation Date Name Description Value Unit Range Abnormal Flag Note LastModifiedBy Organization Detail LastModifiedTime 10/15/2010/15/2024 XR, knee No observ ation record ed. [address], [place], [address], 10/16/2024 08:26:02 Result Notes None recorded. Problems Name Problem SNOMED Code Status Onset Date Resolution Date Notes Provider Name and Address Organization Details Recorded Time Irritable bowel syndrome 10767539 Active Not Available [facility] 3 03:03:04 Acute sinusitis 82148751 Active Not Available [facility] 3 03:03:04 Anti-nucle ar factor detected 735857790 Active Not Available [facility] 3 03:03:04 Insomnia 692391763 Active Not Available [facility] 3 03:03:04 Fibromyalg ia 180522681 Active Not Available [facility] 3 03:03:04 Excessive daytime sleepiness - normal night sleep 150989974 Active Not Available [facility] 3 03:03:04 Urinary symptoms 387054875 Active Not Available [facility] 3 03:03:04 Low back pain 054613258 Active Not Available [facility] 3 03:03:04 Rib pain 327760775 Active Not Available [facility] 3 03:03:04 Swelling of hand 878325817 Active Not Available [facility] 3 03:03:04 Lesion of nose 047835265 Active Not Available [facility] 3 03:03:04 Knee pain Active Not Available [facility] 3 03:03:04 Pain in left knee Active Not Available [facility] 3 03:03:04 Restless legs 52971044 Active Not Available [facility] 3 03:03:04 Attention deficit hyperactiv ity disorder, predominan tly inattentiv e type 32367381 Active Not Available [facility] 3 03:03:04 Depressive disorder 51860792 Active Not Available [facility] 3 03:03:04 Pain of multiple joints 41671227 Active Not Available [facility] 3 03:03:04 Sinusitis 79379739 Active Not Available [facility] 3 03:03:04 Arthritis 7684208 Active Not Available [facility] 3 03:03:05 Migraine 96098769 Active Not Available [facility] 3 03:03:05 Tension-ty pe headache 400030727 Active Not Available [facility] 3 03:03:05 Easy bruising 748928514 Active Not Available [facility] 3 03:03:05 Anxiety 13001905 Active Not Available [facility] 3 03:03:05 Cervical radiculopa thy 18319874 Active Not Available [facility] 3 03:03:05 Pain of wrist region 56980782 Active Not Available [facility] 3 03:03:05 Sudden hearing loss 90624590 Active Not Available [facility] 3 03:03:05 Primary fibromyalg ia syndrome 30749635 Active Not Available [facility] 3 03:03:05 Lateral epicondyli tis of right humerus 0472342199271 07 Active 2022 Not Available [facility] 3 03:03:04 Neck pain 33991140 Active 2022 Not Available [facility] 3 03:03:05 Acute urinary tract infection 872116089 Active 2022 Not Available [facility] 3 03:03:05 Vaginitis 84839426 Active 2022 Not Available [facility] 3 03:03:04 Swelling of left foot 482598926 Active 2022 Not Available [facility] 3 03:03:05 Disorder of vitamin B12 773362011 Active 2022 RAYMON Levy [address], [address], [place], [address] , [facility] 3 09:27:18 Anemia 144337044 Active 2023 RAYMON Levy [address], [address], [place], [address] , [facility] 4 09:57:13 Adult health examinatio n Active 2023 RAYMON Levy [address], [address], [place], [address] , [facility] 4 12:10:04 Screening for malignant neoplasm of cervix Active 2023 RAYMON Levy [address], [address], [place], [address] , [facility] 4 12:11:43 Motion sickness 76069988 Active 2023 RAYMON Levy [address], [address], [place], [address] , [facility] 4 15:35:13 Infectious disorder of joint 348876759 Active 2024 RAYMON Levy [address], [address], [place], [address] , [facility] 5 12:01:08 Tinea capitis 2559468 Active 2024 RAYMON Levy [address], [address], [place], [address] , [facility] 5 12:51:04 Problem Notes None recorded. Procedures Surgical History Date Name Laterality Status Provider Name and Address Organization Details Recorded Time 01/03/20 bone density scan completed Aba Hammer RN [place] [facility] 01/05/2024 12:25:11 02/01/20 23 Corticosteroid Injection completed Dorinda Cervantes MD [address], [address], [place], [address], [facility] 01/31/2023 19:25:03 08/12/20 22 bone density scan completed Not Available [facility] 01/26/2023 07:38:42 11/28/19 21 Back Surgery completed Kim Swartz RN [facility] 04/17/2024 11:20:06 implantation of dental prosthesis into jaw completed Not Available [facility] 01/26/2023 07:38:42 Imaging Results Imaging Date Name Status LastModified by Organiz ation Details LastModified Time 10/15/2024 XR, knee completed [id number] [facility] [address] [facility] [address], [address], 10/16/2024 08:26:02 Procedure Notes None recorded. Medical Equipment None Reported. Allergies Allergen ID Allergen Name Allergen Category Reaction Reaction Severity Criticality Documentation Date Start Date Code Code System Note Provider Name and Address Organization Details Recorded Time 86839 Substance with sulfonami de structure and antibacte rial mechanism of action (substanc e) medicatio n Not available Not available Not available 01/26/2023 67603 8003 SNOMED Not Available [facility] 3 07:48:40 85836 Product containin g penicilli n (product) medicatio n hives Not available Not available 01/26/2023 87710 8001 SNOMED Not Available [facility] 3 07:48:41 78074 Dilaudid medicatio n edema severe Not available 01/26/2023 57751 3 RxNorm Not Available [facility] 3 07:48:41 36010 ciproflox acin medicatio n myalgias (muscle pain) other Not available moderate Not available 12/18/2024 2551 RxNorm RAYMON Levy [address], [address], [place], [address], [facility] 5 12:00:26 Medications Name Sig Start Date Stop Date Status Note LastModified by Organization Details LastModified Time carisopro dol 350 mg tablet TAKE 1 TABLET BY MOUTH TWICE DAILY NEEDED active Not Available Not Available No t Available cyclobenz aprine 10 mg tablet Take 1 tablet 3 times a day by oral route. 11/04 completed Not Available Not Available Not Available amoxicill in 500 mg capsule TAKE 1 CAPSULE BY MOUTH THREE TIMES DAILY UNTIL ALL TAKEN 03/18 completed Not Available Not Available Not Available fluconazo le 100 mg tablet TAKE 1 TABLET BY MOUTH EVERY DAY 09/24 completed Not Available Not Available Not Available methocarb keith 500 mg tablet TK 1 T PO BID 02/26 completed Not Available Not Available Not Available terconazo le 0.4 % vaginal cream active Not Available Not Available Not Available diclofena c 3 % topical gel APPLY TO LESION AREAS TOPICALL Y TWICE DAILY DIRECTED 03/22 completed Not Available Not Available Not Available venlafaxi ne ER 37.5 mg capsule,e xtended release 24 hr TK 1 C PO QD FOR 10 DAYS active Not Available Not Available No t Available venlafaxi ne ER 75 mg capsule,e xtended release 24 hr TK 1 C PO QD FOR 10 DAYS active Not Available Not Available No t Available doxycycli ne hyclate 100 mg capsule Take 1 capsule twice a day by oral route. active Not Available Not Available No t Available atorvasta tin 20 mg tablet Take 1 tablet every day by oral route. active Not Available Not Available No t Available ketoconaz ole 2 % shampoo APPLY TOPICALL Y THREE TIMES A WEEK PRN FOR 30 DAYS active Not Available Not Available No t Available clindamyc in HCl 300 mg capsule TAKE 1 CAPSULE BY MOUTH EVERY 6 HOURS UNTIL GONE 09/24 completed Not Available Not Available Not Available trazodone 50 mg tablet 07/14 completed Not Available Not Available Not Available mecobalam in (bulk) 100 % powder active Not Available Not Available Not Available fosfomyci n trometham ine 3 gram oral packet TAKE 1 RECONSTI TUTED SACHET ORALLY SINGLE DOSE 04/17 completed Not Available Not Available Not Available alprazola m 1 mg tablet TAKE 1 TABLET BY MOUTH TWICE DAILY NEEDED 08/15 completed decrease d to 0.5 mg Not Available Not Available Not Available tramadol 37.5 mg-acetam inophen 325 mg tablet TAKE ONE TABLET BY MOUTH EVERY 4 TO 6 HOURS NEEDED FOR PAIN active Not Available Not Available No t Available tizanidin e 4 mg tablet TAKE 1 TABLET BY MOUTH FOUR TIMES DAILY NEEDED 01/31 completed Not Available Not Available Not Available fluconazo le 150 mg tablet TAKE 1 TABLET BY MOUTH EVERY DAY 11/04 completed Not Available Not Available Not Available benzonata te 200 mg capsule Take 1 capsule 3 times a day by oral route. 01/31 completed Not Available Not Available Not Available sumatript an 100 mg tablet 1 at onset of headache and may repeat in 2 hours. prn for headache . active Not Available Not Available No t Available hydrocodo ne 5 mg-acetam inophen 325 mg tablet TAKE 1 TABLET BY MOUTH EVERY 6 HOURS NEEDED FOR PAIN 01/31 completed Not Available Not Available Not Available methadone 10 mg tablet TK 1 T PO TID PRN 03/22 completed Not Available Not Available Not Available fluconazo le 200 mg tablet TAKE 1 TABLET BY MOUTH ONCE 04/17 completed Not Available Not Available Not Available meloxicam 15 mg tablet active Not Available Not Available Not Available phenazopy ridine 200 mg tablet TAKE 1 TABLET BY MOUTH THREE TIMES DAILY NEEDED 01/31 completed Not Available Not Available Not Available ondansetr on HCl 4 mg tablet TK 2 TS PO Q 8 H FOR 2 DAYS active Not Available Not Available No t Available Medrol (Shakir) 4 mg tablets in a dose pack use as directed 01/31 completed Not Available Not Available Not Available doxycycli ne hyclate 50 mg capsule TAKE 2 CAPSULES BY MOUTH 1 HOUR PRIOR TO ALL DENTAL APPOINTM ENTS 01/31 completed Not Available Not Available Not Available prednison e 5 mg tablet active Not Available Not Available Not Available Pyridium 100 mg tablet Take 1 tablet 3 times a day by oral route as needed. 02/26 completed Not Available Not Available Not Available Zithromax Z-Shakir 250 mg tablet Take 2 TABLET EVERY DAY by oral route for 1 day. Than 1 tablet for 4 days 01/31 completed Not Available Not Available Not Available clindamyc in HCl 150 mg capsule TAKE 1 CAPSULE BY MOUTH EVERY 6 HOURS FOR 10 DAYS active Not Available Not Available No t Available venlafaxi ne ER 150 mg capsule,e xtended release 24 hr TK 1 C PO QD active Not Available Not Available No t Available sumatript an 50 mg tablet Take by oral route at onset of headache and repeat in 2 hrs. active Not Available Not Available No t Available penicilli n V potassium 500 mg tablet TK 1 T PO Q 6 H TAT 03/22 completed Not Available Not Available Not Available azathiopr ine 50 mg tablet 10/11 completed Not Available Not Available Not Available phentermi ne 37.5 mg tablet TK 1 AND 11/29 TS PO QD active Not Available Not Available No t Available acetamino phen 300 mg-codein e 30 mg tablet TAKE 1 TABLET BY MOUTH EVERY 6 HOURS NEEDED FOR PAIN 01/31 completed Not Available Not Available Not Available ciproflox acin 250 mg tablet TK 1 T PO Q 12 H TAT active Not Available Not Available No t Available levofloxa nico 250 mg tablet Take 1 tablet every day by oral route for 5 days. 01/31 completed Not Available Not Available Not Available doxepin 10 mg capsule 07/14 completed Not Available Not Available Not Available ciproflox acin 500 mg tablet TAKE 1 TABLET BY MOUTH EVERY 12 HOURS FOR 10 DAYS 04/17 completed Not Available Not Available Not Available hydrocodo ne 10 mg-acetam inophen 325 mg tablet Take 1-2 tablet(s ) every 4 hours by oral route prn 04/07 completed Not Available Not Available Not Available leflunomi de 20 mg tablet 03/22 completed Not Available Not Available Not Available tramadol 50 mg tablet TAKE 1 TO 2 TABLETS BY MOUTH EVERY 6 HOURS NEEDED 01/23 completed Not Available Not Available Not Available triamcino lone acetonide 0.1 % topical cream Apply 1 applicat ion twice a day by topical route for 30 days. active Not Available Not Available No t Available Cholestyr amine Light 4 gram powder for suspensio n in a packet 01/05 completed Not Available Not Available Not Available ketorolac 10 mg tablet TK 1 T PO HS PRN 07/14 completed Not Available Not Available Not Available meloxicam 7.5 mg tablet TK 1 T PO QD FOR 7 DAYS FOR FLARE UPS OF ARTHRITI S 03/22 completed Not Available Not Available Not Available oxycodone -acetamin ophen 5 mg-325 mg tablet TAKE 1 TABLET BY MOUTH EVERY 12 HOURS NEEDED FOR PAIN active Not Available Not Available No t Available alprazola m 0.5 mg tablet TAKE 1 TABLET BY MOUTH TWICE DAILY active Not Available Not Available No t Available doxycycli ne monohydra te 50 mg capsule active Not Available Not Available Not Available amoxicill in 875 mg tablet 2 tabs pre dental work and 2 tabs after dental work. active Not Available Not Available No t Available amitripty line 25 mg tablet TK 1 T PO QD active Not Available Not Available No t Available methocarb keith 750 mg tablet Take 1 tablet 3 times a day by oral route. active Not Available Not Available No t Available temazepam 15 mg capsule TK 1 C PO QD active Not Available Not Available No t Available methotrex ate sodium 2.5 mg tablet TK 4 TS PO Q 7 DAYS 10/11 completed Not Available Not Available Not Available dextroamp hetamine- amphetami ne ER 20 mg 24hr capsule,e xtend release TAKE 2 CAPSULES BY MOUTH EVERY DAY 10/28 completed Not Available Not Available Not Available diazepam 2 mg tablet 01/04 completed Not Available Not Available Not Available baclofen 10 mg tablet 07/14 completed Not Available Not Available Not Available benzonata te 100 mg capsule TK 1 C PO Q 8 H PRN 02/26 completed Not Available Not Available Not Available hydrocodo ne 7.5 mg-acetam inophen 325 mg tablet active Not Available Not Available Not Available pantopraz ole 40 mg tablet,de layed release 10/11 completed Not Available Not Available Not Available cyanocoba gilbert (vit B-12) 1,000 mcg/mL injection solution Inject 1 mL every month by subcutan eous route. 04/17 completed Not Available Not Available Not Available dextroamp hetamine- amphetami ne 20 mg tablet TAKE 1 TABLET BY MOUTH THREE TIMES DAILY active Not Available Not Available No t Available diclofena c 50 mg-misopr ostol 200 mcg tablet,im med.and delayed release TK 1 T PO BID WITH THE MORNING AND CHATA MEAL 05/26 completed Not Available Not Available Not Available docusate sodium 100 mg capsule TAKE 1 CAPSULE BY MOUTH TWICE DAILY FOR 10 DAYS 04/17 completed Not Available Not Available Not Available pramipexo le 0.25 mg tablet TK 1 T PO QHS active Not Available Not Available No t Available gabapenti n 300 mg capsule TK 2 CS PO QD HS 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 03/22 completed Not Available Not Available Not Available diclofena c sodium 75 mg tablet,de layed release TAKE 1 TABLET BY MOUTH TWICE DAILY 10/05 completed Not Available Not Available Not Available folic acid 1 mg tablet 03/22 completed Not Available Not Available Not Available hydrocodo ne 5 mg-acetam inophen 500 mg tablet active Not Available Not Available Not Available mupirocin 2 % topical ointment APPLY SMALL AMOUNT TO AFFECTED AREA 3 TIMES DAILY active Not Available Not Available No t Available gabapenti n 100 mg capsule active Not Available Not Available Not Available lorazepam 1 mg tablet TK 1 TO 2 TABLETS PO ONE HOUR PRIOR TO PROCEDUR E UTD 03/22 completed Not Available Not Available Not Available hydroxych loroquine 200 mg tablet TAKE 1 TABLET BY MOUTH ON ODD DAYS AND 2 TABLETS ON EVEN DAYS 11/04 completed she stopped it , interfer ing with sight. Not Available Not Available Not Available ibuprofen 600 mg tablet TAKE 1 TABLET BY MOUTH EVERY 6 HOURS NEEDED FOR PAIN 01/31 completed Not Available Not Available Not Available Cipro HC 0.2 %-1 % ear drops,rajesh pension INSTILL 3 DROPS INTO AFFECTED EAR(S) BY OTIC ROUTE EVERY 12 HOURS 05/26 completed Not Available Not Available Not Available levofloxa nico 500 mg tablet Take 1 tablet every 24 hours by oral route. 01/31 completed Not Available Not Available Not Available estradiol 0.01% (0.1 mg/gram) vaginal cream USE 1 GRAM VAGINALL Y 2 TIMES A WEEK. START AFTER LOADING DOSE active Not Available Not Available No t Available zolpidem 10 mg tablet TAKE 1 TABLET BY MOUTH EVERY NIGHT AT BEDTIME NEEDED FOR SLEEP active Not Available Not Available No t Available scopolami ne 1 mg over 3 days transderm al patch APPLY 1 PATCH TOPICALL Y TO THE SKIN EVERY 72 HOURS active Not Available Not Available No t Available albuterol sulfate HFA 90 mcg/actua tion aerosol inhaler INHALE 2 PUFFS BY MOUTH EVERY 4 HOURS NEEDED 04/17 completed Not Available Not Available Not Available OxyContin 10 mg tablet,ex tended release active Not Available Not Available Not Available ketorolac 60 mg/2 mL intramusc ular solution Inject 1 mL every day by intramus cular route for 1 day. 2024 active pt cathryn well Not Available Not Available Not Available dextroamp hetamine- amphetami ne ER 30 mg 24hr capsule,e xtend release Take 1 capsule every day by oral route for 30 days. active Not Available Not Available No t Available indometha nico ER 75 mg capsule,e xtended release active Not Available Not Available Not Available clobetaso l 0.05 % scalp solution APPLY TOPICALL Y TO THE SCALP TWICE DAILY IN THE MORNING AND IN THE EVENING active Not Available Not Available No t Available ondansetr on 4 mg disintegr ating tablet 10/11 completed Not Available Not Available Not Available fluticaso ne propionat e 50 mcg/actua tion nasal spray,rajesh pension active Not Available Not Available Not Available sulindac 200 mg tablet 01/31 completed Not Available Not Available Not Available diazepam 5 mg tablet TAKE 1 TABLET BY MOUTH TWICE DAILY NEEDED 01/31 completed Not Available Not Available Not Available amoxicill in 875 mg-potass ium clavulana te 125 mg tablet TK 1 T PO Q 12 H 12/19 completed Not Available Not Available Not Available oxycodone 5 mg tablet Take 1 tablet every 4 hours by oral route as needed. 07/14 completed Not Available Not Available Not Available cyclobenz aprine 5 mg tablet TK 1 T PO TID 11/04 completed Not Available Not Available Not Available hydrocodo ne 10 mg-acetam inophen 300 mg tablet active Not Available Not Available Not Available nitrofura ntoin monohydra te/macroc rystals 100 mg capsule TAKE 1 CAPSULE BY MOUTH EVERY 12 HOURS FOR 5 DAYS 07/12 completed Not Available Not Available Not Available duloxetin e 30 mg capsule,d elayed release 1 po daily active Not Available Not Available No t Available duloxetin e 60 mg capsule,d elayed release Take 1 capsule every day by oral route. active Not Available Not Available No t Available tizanidin e 6 mg capsule TK 1 C PO D HS 03/22 completed Not Available Not Available Not Available tizanidin e 4 mg capsule 10/11 completed Not Available Not Available Not Available Lyrica 25 mg capsule 03/22 completed Not Available Not Available Not Available Lyrica 50 mg capsule 03/22 completed Not Available Not Available Not Available zolpidem ER 12.5 mg tablet,ex tended release,m ultiphase TAKE 1 TABLET BY MOUTH EVERY DAY AT BEDTIME active Not Available Not Available No t Available chlorhexi dine gluconate 0.12 % mouthwash active Not Available Not Available No t Available coenzyme Q10 (bulk) 100 % powder active Not Available Not Available Not Available FeroSul 325 mg (65 mg iron) tablet Take 1 tablet every day by oral route. 04/17 completed Not Available Not Available Not Available mecobalam in (bulk) 96 % powder active Not Available Not Available Not Available Flector 1.3 % transderm al 12 hour patch APPLY 1 PATCH TWICE DAILY active Not Available Not Available No t Available diclofena c 1 % topical gel 07/14 completed Not Available Not Available Not Available Nuvigil 250 mg tablet TAKE ONE TABLET BY MOUTH EVERY DAY active Not Available Not Available No t Available GaviLyte- N 420 gram oral solution active Not Available Not Available Not Available Nucynta 50 mg tablet TK 1 T PO Q 6 H PRN 03/22 completed Not Available Not Available Not Available Vagifem 10 mcg vaginal tablet INSERT 10 MCG VAGINALL Y TWICE A WEEK 10/05 completed Not Available Not Available Not Available sodium hyalurona te (bulk) 94 % powder active Not Available Not Available Not Available Butrans 10 mcg/hour transderm al patch Apply 1 patch every week by transder mal route. active Not Available Not Available No t Available Butrans 5 mcg/hour transderm al patch active Not Available Not Available Not Available vilazodon e 10 mg tablet Take 1 tablet every day by oral route for 90 days. 2024 active Not Available Not Available Not Avai lable Viibryd 20 mg tablet TK 1 T PO QD active Not Available Not Available No t Available Qsymia 7.5 mg-46 mg capsule, extended release TK ONE C PO QD 03/30 completed Not Available Not Available Not Available Vicodin 5 mg-300 mg tablet active Not Available Not Available Not Available Virtussin AC 10 mg-100 mg/5 mL oral liquid Take 10 mL every 4 hours by oral route. 09/27 completed Not Available Not Available Not Available Fluvirin 0379-3802 (PF) 45 mcg (15 mcg x3)/0.5 mL intramusc ular syringe INJECT 0.5 ML INTRAMUS CULARLY DIRECTED . active Not Available Not Available No t Available Butrans 7.5 mcg/hour transderm al patch APPLY 1 PATCH Q 7 DAYS 07/14 completed Not Available Not Available Not Available Hysingla ER 20 mg tablet, crush resistant , extended release 10/11 completed Not Available Not Available Not Available Viibryd 10 mg (7)-20 mg (23) tablets in a dose pack take 10 mg for 7 days the 20mg for 30 days 07/03 completed Not Available Not Available Not Available Trintelli x 5 mg tablet TK 1 T PO QD active Not Available Not Available No t Available Trintelli x 10 mg tablet Take 1 tablet every day by oral route. 07/03 completed Not Available Not Available Not Available Flulaval Quad 6357-3413 60 mcg (15 mcg x 4)/0.5 mL IM suspensio n ADM 0.5ML IM UTD 07/14 completed Not Available Not Available Not Available Fluarix Quad (PF) 60 mcg (15 mcg x 4)/0.5 mL IM syringe 10/11 completed Not Available Not Available Not Available baclofen 5 mg tablet TAKE 1 TABLET BY MOUTH EVERY DAY AT BEDTIME active Not Available Not Available No t Available Afluria Quad (PF) 60 mcg (15 mcg x 4)/0.5 mL IM syringe ADM 0.5ML IM UTD 10/11 completed Not Available Not Available Not Available Imvexxy Maintenan ce Pack 4 mcg vaginal insert 04/17 completed Not Available Not Available Not Available Flucelvax Quad 60 mcg (15 mcg x 4)/0.5 mL intramusc ular susp active Not Available Not Available No t Available COVID-19 test specimen collectio n USE DIRECTED 10/19 completed Not Available Not Available Not Available Paxlovid 300 mg (150 mg x 2)-100 mg tablets in a dose pack USE DIRECTED 01/31 completed Not Available Not Available Not Available Vitals Date Recorded Body height Body mass index (BMI) Body weight Body temperature Heart rate Respiratory rate Oxygen saturation Oxygen saturation in Arterial blood by Pulse oximetry Systolic blood pressure Diastolic blood pressure Provider Name and Address Organization Details Last Updated DateTime 4 170.18 cm 21.9 kg/m2 07652.9 3 g 98.2 [degF] 76 /min 16 /min 97 % 97 % 110 mm[Hg] 80 mm[Hg] Kim Swartz RN [facility] [employer] [facility] 4 11:25:19 Date Recorded Body height Body mass index (BMI) Body weight Body temperature Heart rate Respiratory rate Oxygen saturation Oxygen saturation in Arterial blood by Pulse oximetry Systolic blood pressure Diastolic blood pressure Provider Name and Address Organization Details Last Updated DateTime 4 170.18 cm 21.8 kg/m2 47010.3 4 g 98.7 [degF] 101 /min 16 /min 99 % 99 % 130 mm[Hg] 84 mm[Hg] Kim Swartz RN [facility] [employer] [facility] 4 15:10:06 Date Recorded Body height Body mass index (BMI) Body weight Body temperature Oxygen saturation Oxygen saturation in Arterial blood by Pulse oximetry Systolic blood pressure Diastolic blood pressure Provider Name and Address Organization Details Last Updated DateTime 4 170.18 cm 22.1 kg/m2 58361.5 2 g 97.8 [degF] 98 % 98 % 118 mm[Hg] 84 mm[Hg] Kim Swartz RN [facility] [employer] [facility] 4 09:43:08 Date Recorded Body height Body mass index (BMI) Body weight Body temperature Heart rate Oxygen saturation Oxygen saturation in Arterial blood by Pulse oximetry Systolic blood pressure Diastolic blood pressure Provider Name and Address Organization Details Last Updated DateTime 5 170.18 cm 22.3 kg/m2 79507.9 1 g 98.2 [degF] 93 /min 98 % 98 % 143 mm[Hg] 92 mm[Hg] Aba Hammer RN [facility] [employer] [facility] 5 11:41:00 Date Recorded Body height Body mass index (BMI) Body weight Heart rate Oxygen saturation Oxygen saturation in Arterial blood by Pulse oximetry Systolic blood pressure Diastolic blood pressure Provider Name and Address Organization Details Last Updated DateTime 5 170.18 cm 22.6 kg/m2 57751.3 g 96 /min 99 % 99 % 142 mm[Hg] 84 mm[Hg] PAVEL Ramon [facility] [employer] [facility] 5 12:42:06 Social History Question Answer Notes LastModified by Organizat ion Details LastModified Time Tobacco Smoking Status Never Smoker Not Available [facility] 01/26/2023 07:38:37 What Is Your Level Of Alcohol Consumption? Occasional [id number] Information not available 01/26/2023 In The 14 Days Before Symptom Onset, Have You Had Close Contact With A Laboratory-confir med COVID-19 While That Case Was Ill? No [id number] Information not available 01/26/2023 In The 14 Days Before Symptom Onset, Have You Had Close Contact With A Person Who Is Under Investigation For COVID-19 While That Person Was Ill? No [id number].[id number] Information not available 01/26/2023 What Type Of Diet Are You Following? REGULAR MIGRATION.[id number] 8062 Information not available 01/26/2023 What Is The Highest Grade Or Level Of School You Have Completed Or The Highest Degree You Have Received? [id number] MIGRATION.[id number] Information not available 01/26/2023 Have There Been Any Changes To Your Family Or Social Situation? Yes [id number].[id number] Information not available 01/26/2023 What Is The Fluoride Status Of Your Home? Fluoridated MIGRATION.[id number] 6784 Information not available 01/26/2023 Are There Any Guns Present In Your Home? Yes MIGRATION.[id number] 1861 Information not available 01/26/2023 Do You Use Insect Repellent Routinely? Yes MIGRATION.509781 6167 Information not available 01/26/2023 Where Do You Live? [place] MIGRATION.348540 0677 Information not available 01/26/2023 Do You Have Any Pets? Yes MIGRATION.716395 0907 Information not available 01/26/2023 What Is Your Relationship Status? MIGRATION.635125 5360 Information not available 01/26/2023 Do You Have Smoke And Carbon Monoxide Detectors In Your Home? Yes MIGRATION.947735 0305 Information not available 01/26/2023 Are You Passively Exposed To Smoke? No MIGRATION.184999 8095 Information not available 01/26/2023 Are There Any Smokers In Your House? No MIGRATION.704129 4400 Information not available 01/26/2023 Do You Participate In Social Media? No MIGRATION.646735 7247 Information not available 01/26/2023 Do You Feel Stressed (tense, Restless, Nervous, Or Anxious, Or Unable To Sleep At Night)? [id number] MIGRATION.784282 0791 Information not available 01/26/2023 Do You Use Sunscreen Routinely? Yes MIGRATION.842276 3643 Information not available 01/26/2023 Are You Currently In School? No MIGRATION.018300 1490 Information not available 01/26/2023 Do You Have Any Dietary Restrictions? No MIGRATION.120556 7707 Information not available 01/26/2023 Sex: Female Functional Status Question Answer Note LastModified by Organizat ion Details LastModified Time What is your exercise level? Occasional [id number].[id number] 26 Information not available 01/26/2023 Mental Status None recorded. Family History Relationship Description Onset Age of this Age Resolved Age Notes LastModified by Organization Details LastModified Time Mother Arthritis MIGRATION.277 [id number] Not available 01/26/2023 07:38:44 Paternal Grandmother Arthritis MIGRATION.962 [id number] Not available 01/26/2023 07:38:44 Paternal Grandmother Family history of malignant neoplasm MIGRATION.409 [id number] Not available 01/26/2023 07:38:44 Maternal Grandfather Family history of malignant neoplasm MIGRATION.586 [id number] Not available 01/26/2023 07:38:44 Maternal Grandfather Alzheimer's disease MIGRATION.363 [id number] Not available 01/26/2023 07:38:44 Maternal Grandmother Family history of malignant neoplasm MIGRATION.170 [id number] Not available 01/26/2023 07:38:44 Paternal Grandfather Family history of malignant neoplasm MIGRATION.250 [id number] Not available 01/26/2023 07:38:44 Medical History No medical history recorded. Gynecological HistoryNo gynecological history recorded. Obstetrics History GPAL:G 0 P 0 0 0 0 Immunizations Vaccine Type Date Status Note Provider Nam e and Address Organization Details Recorded Time Influenza, split virus, quadrivalent, PF 0 completed Not Available [facility] 06/18/2023 03:03:05 zoster recombinant 0 completed Not Available [facility] 06/18/2023 03:03:05 zoster recombinant 9 completed Not Available [facility] 06/18/2023 03:03:05 Pneumococcal conjugate PCV 13 8 completed Not Available [facility] 06/18/2023 03:03:05 Tdap 8 completed Not Available [facility] 06/18/2023 03:03:05 Influenza, split virus, quadrivalent, preservative 5 completed Not Available [facility] 06/18/2023 03:03:05 Past Encounters Encounter ID Performer Location Encounter Start Date Encounter Closed Date Diagnosis/Indication Diagnosis SNOMED-CT Code Diagnosis ICD10 Code Diagnosis Note [id number] Dorinda Cervantes MD [facility] [place] [address] [place] [address] 03/18/2021 00:00:00 03/18/2021 19:38:23 [id number] Dorinda Cervantes MD [facility] [place] [address] [place] [address] 05/08/2021 00:00:00 05/09/2021 10:07:26 [id number] Dorinda Cervantes MD [facility] [place] [address] [place] [address] 09/24/2021 00:00:00 09/24/2021 21:43:08 [id number] Dorinda Cervantes MD [facility] [place] [address] [place] [address] 10/19/2021 00:00:00 10/19/2021 19:30:24 [id number] Dorinda Cervantes MD [facility] [place] [address] [place] [address] 02/05/2022 00:00:00 02/05/2022 15:35:39 [id number] Dorinda Cervantes MD [facility] [place] [address] [place] [address] 06/29/2022 00:00:00 06/30/2022 08:15:10 [id number] Dorinda Cervantes MD [facility] [place] [address] [place] [address] [place] [address] 09/30/2022 00:00:00 10/01/2022 16:48:54 [id number] Dorinda Cervantes MD [facility] [place] [address] [place] [address] [place] [address] 01/31/2023 14:15:16 01/31/2023 14:59:16 Lateral epicondylitis of right humerus 2366440071 07323 M77.11 Injected right elbow with cortisone. Continue to ice and take NSAIDS and tennis elbow strap. Neck pain 55816408 M54.2 Anxiety 05992624 F41.9 [id number] Dorinda Cervantes MD [facility] [place] [address] [place] [address] [place] [address] 05/30/2023 13:51:23 05/30/2023 17:21:18 Acute urinary tract infection 082598466 N39.0 [id number] Dorinda Cervantes MD [facility] [place] [address] [place] [address] [place] [address] 06/03/2023 08:58:54 06/03/2023 09:32:15 Vaginitis 72211519 N76.0 Has diflucan may repeat if needed. Urinary symptoms 5612621 08 R39.9 May take cipro as needed. Swelling of left foot 76 1829422 M79.89 Watch salt and elevate legs. 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.8 [id number] Rakesh Demarco MD [facility] [place] [address] [place] [address] [place] [address] 04/17/2024 11:06:52 04/17/2024 12:06:44 Cervical radiculopathy 70021065 M54.12 Disorder o f vitamin B12 631628097 E53.8 Primary fi bromyalgia syndrome 90554042 M79.7 Restless legs 12467100 G 25.81 Urinary symptoms 3536793 08 R39.9 Attention deficit hyperactivity disorder, 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.0 Adult heal th examination 572372206 Z00.00 Anemia 397462711 D64.9 Anxiety 60488527 F41.9 Arthritis 3198425 M19.90 Depressive disorder 3548 9007 F32.A Fibromyalgia 001988213 M 79.7 Insomnia 812926380 G47.0 0 Irritable bowel syndrome 46193268 K58.9 Pain of mu ltiple joints 65783042 M25.50 [id number] Rakesh Demarco MD [facility] [place] [facility] [address] [place] [address] [place] [address] 07/12/2024 14:48:18 07/12/2024 15:23:15 Attention deficit hyperactivity disorder, predominantly inattentive type 52501501 F90.0 Anxiety 26188517 F41.9 Motion sickness 87554508 T75.3XXA Anemia 681489384 D64.9 Arthritis 4738083 M19.90 Cervical radiculopathy 14081397 M54.12 Disorder o f vitamin B12 221805806 E53.8 Fibromyalgia 121006913 M 79.7 Insomnia 599722734 G47.0 0 Irritable bowel syndrome 46378286 K58.9 Pain of mu ltiple joints 83915198 M25.50 Restless legs 20411725 G 25.81 [id number] Rakesh Demarco MD [facility] [place] [address] [place] [address] [place] [address] 10/05/2024 09:11:16 10/05/2024 10:10:02 Attention deficit hyperactivity disorder, predominantly inattentive type 32223985 F90.0 Primary fi bromyalgia syndrome 97220279 M79.7 Pain of mu ltiple joints 25979794 M25.50 Low back pain 924290258 M54.50 Irritable bowel syndrome 27985208 K58.9 Insomnia 029871868 G47.0 0 Depressive disorder 3548 9007 F32.A Cervical radiculopathy 71087638 M54.12 [id number] Rakesh Demarco MD [address] [address] 12/18/2024 11:28:29 12/18/2024 12:11:05 Pain of wrist region 05020003 M25.532 Infectious disorder of joint 992243219 M01.X0 right knee , she was exposed to Staff . Attention deficit hyperactivity disorder, predominantly inattentive type 84680427 F90.0 Anxiety 82445907 F41.9 [id number] Rakesh Demarco MD [address] [address] 03/14/2025 12:16:34 03/14/2025 13:26:18 Tinea capitis 9728324 B35.0 Anxiety 02976056 F41.9 Attention deficit hyperactivity disorder, predominantly inattentive type 92470249 F90.0 Fibromyalgia 656070764 M 79.7 Pain of mu ltiple joints 05658837 M25.50 Depressive disorder 3548 9007 F32.A Health Concerns Section Related Observation LastModified by Organization Detai ls LastModified Time None Recorded Concern Status LastModified by Organization Details LastModified Time None Recorded Advance Directives Directive None Recorded Payers Encounter Date Sequence Insurance Name Policy Number Policy Black Covered Member ID Black Member ID Guarantor Name 04/17/2024 1 [place] [id number] 2 Cristino Wall [id number] Tom Wall 07/12/2024 1 [place] [id number] 2 Cristino Wall [id number] Tom Wall 10/05/2024 1 [place] [id number] 2 Cristino Wall [id number] Tom Wall 12/18/2024 1 [place] [id number] 2 Cristino Wall [id number] Tom Wall 03/14/2025 1 [place] [id number] 2 Cristino Kebede Mae [id number] 07 Tom Mae Notes Date Note Type Note Provider Name and Address Organization Details Recorded Time 04/17/2024 text/html no changes RAYMON Levy [address], [place], [address], [employer] 05/07/2024 17:21:09 07/12/2024 text/html needs the same number of alprazolam for now RAYMON Levy [address], [place], [address], [employer] 08/29/2024 13:58:22 10/05/2024 text/html having knee replacement right Oct 15 RAYMON Levy [address], [place], [address], [employer] 10/29/2024 15:36:36 12/18/2024 text/html left wrist . oct 05 total knee right . had a boil ., had right total knee replacement , worried about infection RAYMON Levy [address], [place], [address], [employer] 12/21/2024 18:21:12 03/14/2025 text/html itchy scalp , right heath RAYMON Levy [address], [place], [address], [employer] 03/29/2025 15:05:45 OBGyn Episode No OBEpisode recorded.
--- OUTSIDE RECORDS SUMMARY | 2025-04-03 15:19 | XMS_ITS | Clinical Summary ---
Author Organization [facility] Address [address] [place] [address] Care Team Providers Care Hydro Sprayer Operator Name Role Phone Dorinda Leach MD Primary Care Provider [phone] Clara Barber MD Unavailable UnavailTiny Luna MD Unavailable [phone] Allergies Active Allergy Reactions Criticality Noted Date Comments Hydromorphone Angioedema High 08/27/2021 Penicillins Hives 08/27/2021 Sulfa Antibiotics Other (see comment) Patient states to list this as an allergy as it is a strong family allergy and patient does not want it. Medications vilazodone (VIIBRYD) 10 MG tablet Take 1 tablet by mouth daily. Active ALPRAZolam 1 MG tablet Take 1 tablet by mouth 3 (three) times daily as needed. Active Coenzyme Q10 (CO Q 10 OR) Take 1 tablet by mouth daily. Unsure of dose, son gets this for her. Active NON FORMULARY Take 2 tablets by mouth daily. Bergamot homeopathic drug Active NON FORMULARY SBI -It is a product to boost immune system Active vitamin D2, ergocalciferol, 91436 UNITS capsule Take 50,000 Units by mouth every 7 days. Tuesday Active Multiple Vitamins-Minera ls (MULTIVITAMIN ADULTS OR) Take 1 tablet by mouth daily. Active COLLAGEN OR 1 scoop a day Acti ve Probiotic Product (PROBIOTIC ADVANCED) Cap Active Nitrofurantoin Monohyd Macro (MACROBID OR) Premedicated prior to dental procedures. Active HYDROcodone-bri taminophen 5-325 MG tabletIndicatio ns:Acute Pain < 7 Day Supply Take 1 tablet by mouth every 4 (four) hours as needed for Pain. Indications: Acute Pain < 7 Day Supply 35 tablet 1 Active diazePAM 5 MG tabletIndicatio ns:Cervical stenosis of spinal canal Take 1 tablet (5 mg total) by mouth every 6 (six) hours as needed (muscle spasms). 30 tablet 1 Active Active Problems Problem Noted Date Diagnosed Date Cervical stenosis of spinal canal 09/01/2021 Family History Medical History Relation Comments COPD Father Cancer Father Diabetes Father Heart Disease Father Hypertension Father Breast Cancer Maternal Grandmother Cancer Maternal Grandmother Breast Cancer Mother Cancer Mother breast cancer Cancer Paternal Grandfather Prostate Cancer Paternal Grandfather Relation Status Comments Father Alive Maternal Grandmother Mother Alive Paternal Grandfather Son 1 Alive Son 2 Alive Social History Tobacco Use Types Packs/Day Years Used Date Smoking Tobacco: Never Smokeless Tobacco: Never Alcohol Use Standard Drinks/Week Comments Yes 0 (1 standard drink = 0.6 oz pur e alcohol) less than 1 drink a week Comments No Sex and Gender Information Value Date Recorded Sex Assigned at Not on file Legal Sex Female 1:13 PM CDT Gender Identity Not on file Sexual Orientation Not on file Last Filed Vital Signs Vital Sign Reading Time Taken Comments Blood Pressure 135/70 09/02/2021 4:10 AM CDT Pulse 86 09/02/2021 4:10 AM CDT Temperature 36.8 C (98.2 F) 09/02/2021 4:10 AM CDT Respiratory Rate 18 09/02/2021 12:00 AM CDT Oxygen Saturation 100% 09/02/2021 4:10 AM CDT Inhaled Oxygen Concentration - - Weight 67.2 kg (148 lb 2.4 oz) 09/01/2021 6:30 A M CDT Height 170.2 cm (5' 7 ) 09/01/2021 6:30 AM CDT Body Mass Index 23.2 09/01/2021 6:30 AM CDT Plan of Treatment Health Maintenance Due Date Last Done Comments Cervical Cancer Screening Pa p Smear (Age 30 to 64) Every 3 Years 1964 Colorectal Cancer Screening Colonoscopy (10 Years) 1964 Annual Physical 1967 Hepatitis C 1982 Cervical Cancer Screening Pa p with HPV Testing (Age 30 to 64) Every 5 Years 1994 Cervical Cancer Screening wi th HPV 1994 Mammogram Screening 2004 Pneumococcal Vaccine: 50+ Years (2 of 2 - PPSV23) 10/11/2019 10/11/2018 COVID-19 Vaccine (2 - 2023-2 5 season) 2024 12/04/2021, 02/05/2021 DTaP, Tdap and Td Vaccines ( 2 - Td or Tdap) 12/14/2027 12/14/2017 RSV Immunization or 60+ Years (1 - 1-dose 75+ series) 2039 Zoster Vaccines Completed 12/27/2019, 10/23/2019 Meningococcal B Vaccine Aged Out No l onger eligible based on patient's age to complete this topic Meningococcal Vaccine Aged Out No sobia kuldip eligible based on patient's age to complete this topic RSV Immunizations Under 20 Months Aged Out No longer eligible b ased on patient's age to complete this topic Goals Goal Patient Goal Type Associated Problems Recent Progress Patient-Stated? Author Safety - demonstrates understanding of home safety measures General No Mariama Rivera RN Medical Devices Implanted Type Area Commercial Diver Device Identifier Shelf Expiration Date Model / Serial / Lot Graft Bone I Factor 1cc Allograft Putty Syringe - [id number] Implanted:Qty : 1 on 09/01/2021 by Tiny Vargas MD at [facility] Bone N/A: Spine Cervical [employer] [id number] 04/27/2024 700-010 / / [id number] Sst Oct Setscrew Implanted:Qty : 9 on 09/01/2021 by Tiny Vargas MD at [facility] Screw N/A: Spine Cervical NEW AGE MEDICAL 26-SETSCR EW / / Sst Oct 3.5 X 12 Screw Implanted:Qty : 9 on 09/01/2021 by Tiny Vargas MD at [facility] Screw N/A: Spine Cervical NEW AGE MEDICAL 26-PA-35- 12 / / Sst Oct Kayla Implanted:Qty : 2 on 09/01/2021 by Tiny Vargas MD at [facility] Bilateral: Spine Cervical 26-CC-PB- [id number] / / Explanted Type Area Commercial Diver Device Identifier Shelf Expiration Date Model / Serial / Lot Bur Drill Neuro Orchard 3.0mm X 3.8mm - [id number] Explanted:Qty : 1 on 09/01/2021 by Tiny Vargas MD at [facility] Drill N/A: Spine Cervical [employer] - DIV SHEILA SYMONE [id number] / / Skull Pins Explanted:Qty : 3 on 09/01/2021 by Tiny Vargas MD at [facility] N/A: Spine Cervical SP-001 / / Insurance [facility] Care Teams Hydro Sprayer Operator Relationship Specialty Start Date End Date Dorinda Leach MD [address] [address] PCP - General FAMILY PRACTICE 08/20/21 Clara Barber MD [address] [address] RHEUMATOLOGY 08/27/21 Tiny Vargas MD [address] [address] Surgeon NEUROLOGICAL SURGERY 08/27/21
== END 2025-04-03 15:13 | disposition home or self-care (01) ==
LOC: ANHIMG 15:14
PROVIDERS: PCP Physician Assistant; Visit Provider Obstetrics & Gynecology
DX: Z12.31 Encounter for screening mammogram for malignant neoplasm of breast (principal)
CPT/HCPCS: 77063; 77067